=== PATIENT | male | born 1965 | race Caucasian/White ===

== ENCOUNTER 2018-12-01 16:38 | Emergency (ER) | payer OTHER ==
[~2018-12-01] VITALS: Ht 172.7 cm; Wt 78.9 kg
[~2018-12-01 16:38] MED LIST: AMOX250; Cleocin HCl300 MG PO; HYDR-86; PERIDEX15 ML MM
[2018-12-01 17:53] LABS: BASOPHILS ABSOLUTE AUTO 0.04 K/mm3 (0.00-0.23); BASOPHILS PERCENT AUTO 1 % (0-2); EOSINOPHILS ABSOLUTE AUTO 0.11 K/mm3 (0.00-0.68); EOSINOPHILS PERCENT AUTO 2 % (0-6); Hematocrit 45.1 % (37.0-53.0); Hemoglobin 15.4 g/dL (13.5-17.5); IMMATURE GRAN ABSOLUTE AUTO 0.01 K/mm3 (0.00-0.10); IMMATURE GRAN PERCENT AUTO 0 % (0-1); LYMPHOCYTES ABSOLUTE AUTO 2.16 K/mm3 (0.84-5.20); LYMPHOCYTES PERCENT AUTO 39 % (21-46); MONOCYTES ABSOLUTE AUTO 0.54 K/mm3 (0.16-1.47); MONOCYTES PERCENT AUTO 10 % (4-13); Mean Corpuscular HGB 32.7 pg (26.0-34.0); Mean Corpuscular HGB Conc 34.1 g/dL (31.5-36.5); Mean Corpuscular Volume 96 fL (80-100); Mean Platelet Volume 9.7 fL (9.1-12.4); NEUTROPHILS ABSOLUTE AUTO 2.69 K/mm3 (1.96-9.15); NEUTROPHILS PERCENT AUTO 49 % (41-73); Platelet Count 261 K/mm3 (150-400); RDW Coefficient Variation 13.9 % (11.7-14.2); RDW Standard Deviation 49.3 fL (35.1-46.3); Red Blood Cell Count 4.71 M/mm3 (4.30-5.90); White Blood Cell Count 5.55 K/mm3 (4.00-11.30)
[2018-12-01 18:17] LABS: Troponin I <0.015 ng/mL (0.000-0.040)
[2018-12-01 18:18] LABS: Alanine Aminotransfer (ALT/SGP 54 U/L (12-78); Albumin, Blood 4.5 g/dL (3.4-5.0); Albumin/Globulin Ratio 1.2 (0.8-1.8); Alk Phos 61 U/L (50-136); Anion Gap 8 mmol/L (6-16); Aspartate Aminotrans (AST/SGOT 65 U/L (12-37); Bilirubin, Total 0.4 mg/dL (0.1-1.0); Blood Urea Nitrogen 9 mg/dL (8-24); Bun/Creatinine Ratio 10.9 (12.0-20.0); CO2, Blood 28 mmol/L (21-32); Chloride, Blood 104 mmol/L (98-108); Creatinine, Blood 0.83 mg/dL (0.60-1.20); Globulin, Blood 3.8 g/dL (2.2-4.0); Glomerular Filtration Rate >60 (60-); Glucose, Blood 98 mg/dL (70-99); Potassium, Blood 3.9 mmol/L (3.5-5.5); Sodium, Blood 140 mmol/L (136-145); Total Protein, Blood 8.3 g/dL (6.4-8.2)
[2018-12-01 18:40] LABS: U Amphetamine Screen Not Detected; U Barbituate Screen Not Detected; U Benzodiazapine Screen Not Detected; U Cocaine Screen Not Detected; U Methadone Screen Not Detected; U Methamphetamine Screen Not Detected; U Opiates Screen Not Detected; U Phencyclidine Screen Not Detected
[2018-12-01 18:41] LABS: U Buprenorphine Screen Not Detected; U Cannabinoids Screen DETECTED; U Oxycodone Screen Not Detected; U Propoxyphene Screen Not Detected
[2018-12-01] MEDS ORDERED: Motion Sickness25 M1 PO (19:46)
== END 2018-12-01 19:52 | disposition home or self-care (01) ==
LOC: ER 16:38
PROVIDERS: Emergency Medicine; Physician Assistant
DX: R42 Dizziness and giddiness (principal); E53.8 Deficiency of other specified B group vitamins; R11.2 Nausea with vomiting, unspecified; Z79.899 Other long term (current) drug therapy; Z79.891 Long term (current) use of opiate analgesic; F17.200 Nicotine dependence, unspecified, uncomplicated
CPT/HCPCS: 36415; 70450; 71046; 80053; 82607; 82746; 84484; 85025; 93005; 93010; 96361; 96374; 99284-25; J2405; J7030

== ENCOUNTER 2020-07-22 15:50 | Inpatient (IN) | payer OTHER ==
[~2020-07-22] VITALS: Ht 172.7 cm; Wt 78.3 kg
[~2020-07-22 15:50] MED LIST changes: +Motion Sickness25 M1 PO
[2020-07-22 16:13] LABS: BASOPHILS ABSOLUTE AUTO 0.05 K/mm3 (0.00-0.23); BASOPHILS PERCENT AUTO 1 % (0-2); EOSINOPHILS ABSOLUTE AUTO 0.16 K/mm3 (0.00-0.68); EOSINOPHILS PERCENT AUTO 2 % (0-6); Hemoglobin 16.2 g/dL (13.5-17.5); IMMATURE GRAN ABSOLUTE AUTO 0.01 K/mm3 (0.00-0.10); IMMATURE GRAN PERCENT AUTO 0 % (0-1); LYMPHOCYTES ABSOLUTE AUTO 1.88 K/mm3 (0.84-5.20); LYMPHOCYTES PERCENT AUTO 28 % (21-46); MONOCYTES ABSOLUTE AUTO 0.62 K/mm3 (0.16-1.47); MONOCYTES PERCENT AUTO 9 % (4-13); Mean Corpuscular HGB Conc 33.8 g/dL (31.5-36.5); Mean Corpuscular Volume 101 fL (80-100); Mean Platelet Volume 9.8 fL (9.1-12.4); NEUTROPHILS PERCENT AUTO 59 % (41-73); Platelet Count 175 K/mm3 (150-400); RDW Coefficient Variation 12.8 % (11.7-14.2); Red Blood Cell Count 4.76 M/mm3 (4.30-5.90); White Blood Cell Count 6.62 K/mm3 (4.00-11.30)
[2020-07-22 16:20] LABS: Source, Urine Catheter
[2020-07-22 16:32] LABS: Appearance, Urine Hazy (Clear); Bilirubin, Urine Neg (Neg); Blood, Urine 2+ (Neg); Color, Urine Yellow (P-Yellow); Glucose Qualitative, Urine Neg (Neg); Ketones, Urine 1+ (Neg); Leukocyte Esterase, Urine 1+ (Neg); Nitrite, Urine Neg (Neg); Protein, Urine 3+ (Neg); Specific Gravity, Urine 1.015 (1.003-1.022); Urobilinogen, Urine 1+ (Normal); pH, Urine 6.5 (5.0-8.0)
[2020-07-22 16:43] LABS: Mucus Light (0-Heavy); White Blood Cells, Urine 0-2 /hpf (0-5)
[2020-07-22 16:44] LABS: Amorphous Light (0-Heavy); Bacteria Few /hpf; Squamous Epithelial Cells Few /hpf (Few); U Amphetamine Screen Not Detected; U Barbituate Screen Not Detected; U Benzodiazapine Screen DETECTED; U Buprenorphine Screen Not Detected; U Cannabinoids Screen DETECTED; U Cocaine Screen Not Detected; U Methadone Screen Not Detected; U Methamphetamine Screen Not Detected; U Opiates Screen Not Detected; U Phencyclidine Screen Not Detected
[2020-07-22 16:45] LABS: U Oxycodone Screen Not Detected; U Propoxyphene Screen Not Detected
[2020-07-22 16:47] LABS: Alanine Aminotransfer (ALT/SGP 200 U/L (12-78); Albumin, Blood 3.9 g/dL (3.4-5.0); Alk Phos 68 U/L (50-136); Anion Gap 12 mmol/L (6-16); Aspartate Aminotrans (AST/SGOT 208 U/L (12-37); Bilirubin, Total 0.4 mg/dL (0.1-1.0); Blood Urea Nitrogen 11 mg/dL (8-24); Bun/Creatinine Ratio 14.8 (12.0-20.0); CO2, Blood 26 mmol/L (21-32); Calcium, Blood 8.6 mg/dL (8.5-10.1); Chloride, Blood 104 mmol/L (98-108); Creatinine, Blood 0.74 mg/dL (0.60-1.20); Globulin, Blood 3.9 g/dL (2.2-4.0); Glomerular Filtration Rate >60 (60-); Glucose, Blood 125 mg/dL (70-99); Salicylate 3.7 mg/dL (2.8-20.0); Sodium, Blood 142 mmol/L (136-145); Total Protein, Blood 7.8 g/dL (6.4-8.2)
[2020-07-22 16:50] LABS: Ethanol (Alcohol), Blood, Med 483 mg/dL
[2020-07-22 16:51] LABS: Acetaminophen, Random <2.0 ug/mL (10.0-30.0)
[2020-07-22 17:08] LABS: PCO2 Arterial 57.6 mmHg (35-45); PO2 Arterial 82.9 mmHg (80-100)
[2020-07-22 17:38] LABS: Influenza A, PCR Negative (NEGATIVE); Influenza B, PCR Negative (NEGATIVE); Resp Syncytial Virus, PCR Negative (NEGATIVE); SARS-Cov-2 (COVID-19) PCR, MMC Negative (NEGATIVE)
--- NOTE | 2020-07-22 20:00 | NUR ---
ASSESSMENT/ADMIT PT ADMITTED TO ICU 13 VIA ER. PT ARRIVED VIA GURNEY WITH RN AND RT. PT INTUBATED AND BEING BAGGED. PT TRANSFERED TO BED BY STAFF WITH SLIDER SHEET. PT TRYING TO REACH FOR ET TUBE. NOT FOLLOWING INSTRUCTIONS. BILAT WRIST RESTRAINTS ON. PT CALMS WHEN UNDISTURBED, BUT PULLS AGAINST RESTRAINTS DURING ASSESSMENT AND TO VERBAL STIMULI. LUNGS WITH WHEEZES TO UPPER LOBES AND DECREAED THROUGHOUT. VENT SETTINGS AC 18 TV 450 PEEP 5 FIO2 35%. SUCTIONED SCANT AMT CLEAR LIQUID VIA ET TUBE. HEART RATE REGULAR. NO EDEMA. BT+ HYPOACTIVE. OG TO LIS WITH SMALL AMT CLEAR LIQUID IN TUBING. BARNES CATH PATENT DRAINING DARK YELLOW URINE. IV 20 G TO RIGHT AC WITH NS AT TKO, SITE CLEAR. IV 20G TO LEFT AC WITH PROPOFOL AT 50 MCQ/KG/MIN, FENTANYL 100 MCQ/HR. SITE CLEAR.
[2020-07-22 20:36] LABS: International Normalized Ratio 0.96; Prothrombin Time Results 10.3 Sec (9.7-11.5)
--- NOTE | 2020-07-22 22:10 | NUR ---
POISON CONTROL [facility] FROM [facility]ISON [facility] CALLED, UPDATE GIVE AND REVIEWED LABS.
--- NOTE | 2020-07-22 22:53 | NUR ---
HYPOTENSION CALL TO HOSPITALIST MARCI NICOLE REGARDING HYPOTESION AND SEDATION. ORDER FOR LEVOPHED OBTAINED
--- NOTE | 2020-07-23 02:30 | NUR ---
SEDATION PT TRYING TO KICK LEGS OUT OF BED AND SIT UP. PULLING AGAINST RESTRAINTS. MED WITH VERSED 2 MG. PT THAN STOPS PULLING AGAINST RESTRAINTS AND RELAXES. SPO2 THAN DROPS TO 82%. SUCTIONED SCANT AMT VIA ET TUBE. RT INCREASED FIO2 TO 50% TO KEEP FIO2 GREATER THAN 92%.
[2020-07-23 04:03] LABS: BASOPHILS ABSOLUTE AUTO 0.03 K/mm3 (0.00-0.23); BASOPHILS PERCENT AUTO 1 % (0-2); EOSINOPHILS ABSOLUTE AUTO 0.13 K/mm3 (0.00-0.68); EOSINOPHILS PERCENT AUTO 2 % (0-6); Hematocrit 38.9 % (37.0-53.0); Hemoglobin 12.8 g/dL (13.5-17.5); IMMATURE GRAN ABSOLUTE AUTO 0.02 K/mm3 (0.00-0.10); IMMATURE GRAN PERCENT AUTO 0 % (0-1); LYMPHOCYTES ABSOLUTE AUTO 1.48 K/mm3 (0.84-5.20); LYMPHOCYTES PERCENT AUTO 28 % (21-46); MONOCYTES ABSOLUTE AUTO 0.37 K/mm3 (0.16-1.47); MONOCYTES PERCENT AUTO 7 % (4-13); Mean Corpuscular HGB 33.8 pg (26.0-34.0); Mean Corpuscular HGB Conc 32.9 g/dL (31.5-36.5); Mean Corpuscular Volume 103 fL (80-100); Mean Platelet Volume 10.4 fL (9.1-12.4); NEUTROPHILS PERCENT AUTO 62 % (41-73); Platelet Count 147 K/mm3 (150-400); RDW Coefficient Variation 13.1 % (11.7-14.2); RDW Standard Deviation 49.7 fL (35.1-46.3); Red Blood Cell Count 3.79 M/mm3 (4.30-5.90); White Blood Cell Count 5.33 K/mm3 (4.00-11.30)
[2020-07-23 04:21] LABS: Alanine Aminotransfer (ALT/SGP 130 U/L (12-78); Albumin, Blood 2.9 g/dL (3.4-5.0); Alk Phos 50 U/L (50-136); Anion Gap 9 mmol/L (6-16); Aspartate Aminotrans (AST/SGOT 115 U/L (12-37); Bilirubin, Total 0.4 mg/dL (0.1-1.0); Blood Urea Nitrogen 10 mg/dL (8-24); Bun/Creatinine Ratio 12.5 (12.0-20.0); CO2, Blood 25 mmol/L (21-32); Chloride, Blood 112 mmol/L (98-108); Globulin, Blood 2.8 g/dL (2.2-4.0); Glomerular Filtration Rate >60 (60-); Glucose, Blood 107 mg/dL (70-99); Potassium, Blood 3.8 mmol/L (3.5-5.5); Sodium, Blood 146 mmol/L (136-145); Total Protein, Blood 5.7 g/dL (6.4-8.2)
--- NOTE | 2020-07-23 06:05 | NUR ---
SHIFT SUMMARY PT ADMITTED TO ICU 13 DURING THE NIGHT. PT INTUBATED AND ON [facility] VENT. CURRENT VENT SETTINGS AC 18 TV 450 PEEP 5 FIO2 40%. LUNGS CLEAR BUT DECREASED IN THE BASES. SUCTIONING SCANT AMT CLEAR LIQUID VIA ET TUBE. HEART RATE REGULAR. PT STARTED ON LEVOPHED DURING THE NIGHT DUE TO HYPOTENSION TITRATED TO KEEP MAP GREATER THAN 65. CURRENTLY LEVOPHED AT 4 MCQ/MIN. OG TO LIS WITH SCANT AMT IN TUBING. BARNES CATH PATENT DRAINING DARK YELLOW URINE. 383ML OUT FOR THE NIGHT OF URINE. DIFFICULTY SEDATING PT CURRENTLY PT ON PROPOFOL AT 50 MCQ/KG/MIN, FENTANYL 100 MCQ/HR, PRECEDEX 0.7 MCQ/KG/HR AND RECEIVING VERSED 2MG PRN. BILAT WRIST RESTRAINTS ON. DAUGHTER CAME INTO SEE PT FOR ABOUT 5 MIN DURING THE NIGHT SHE WILL BE BACK TODAY. STATED PT LOST HIS ONE WEEK AGO. REPORT TO ON COMING NURSE.
--- NOTE | 2020-07-23 08:15 | NUR ---
ASSESSMENT- PT SEDATED WITH PROPOFOL AT 50 MCG/KG/MIN, PRECEDEX AT 0.7 MCG/KG/HR AND FENTANYL GTT AT 100 MCG/HR. ABLE TO OPEN EYES TO NAME, NO RESPONSE TO COMMANDS. DOES MOVE EXTREMITIES. EXTUBATION RISK, BILATERAL WRIST RESTRAINTS ON. ORALLY INTUBATED, TUBE SECURE. TOLERATING VENT. LUNGS CLEAR, SCANT CLEAR SECRETIONS. NSR, SBP STABLE, LEVOPHED TITRATED OFF. PIV X 2 INTACT, 3RD SITE STARTED. NS AT 100 CC/HR. OGT TO LIS WITH SCANT CLEAR DRAINAGE. UO VIA BARNES. DR. COLLADO HERE-UPDATED.
--- NOTE | 2020-07-23 09:37 | NUR ---
DR HA HERE-ASSESSED PT. DECREASED FENTANYL TO 50 MCG/HR, WILL ATTEMPT TO WEAN OFF. PT AWAKENS TO NAME, NO RESPONSE TO COMMANDS
--- NOTE | 2020-07-23 11:29 | NUR ---
BATH DONE, REPOSITIONED, AWAKENS EASILY, BACK TO SLEEP QUICKLY. FENTANYL TITRATED OFF. POISON CONTROL CALLED-UPDATED. UO LOW, NEEDED TO RESTART LEVOPHED, CHECKING IV SITE FREQUENTLY. LR BOLUS STARTED
--- NOTE | 2020-07-23 13:30 | NUR ---
DR. HA HERE-ATTEMPT TO DECREASE PROPOFOL, PLAN TO INCREASE PRECEDEX AND TITRATE OFF PROPOFOL IF TOLERATED. PROPOFOL CHANGED TO 40 MCG/KG/MIN, PT QUICKLY BECAME VERY AGITATED, TRYING TO SIT UP IN BED, KICKING LEGS. NEEDED TO RX WITH VERSED, INCREASE PROPOFOL TO 80 MCG/KG/MIN FOR SEDATION. MULTIPLE STAFF NEEDED TO PREVENT SELF-EXTUBATION. NOW CALM, SEDATE. SECOND LR BOLUS INFUSING-UO LOW.
--- NOTE | 2020-07-23 14:10 | NUR ---
PHENOBARB GIVEN, PROPOFOL DECREASED TO 50 MCG/KG/MIN. PT SEDATE, ABLE TO TOLERATE TURNING. NSR. BP STABLE. BOLUS STILL INFUSING, UO MINIMAL
[2020-07-23 15:27] LABS: Anion Gap 4 mmol/L (6-16); Blood Urea Nitrogen 13 mg/dL (8-24); Bun/Creatinine Ratio 16.9 (12.0-20.0); CO2, Blood 27 mmol/L (21-32); CPK Creatine Kinase 95 U/L (39-308); Calcium, Blood 7.2 mg/dL (8.5-10.1); Chloride, Blood 112 mmol/L (98-108); Creatinine, Blood 0.77 mg/dL (0.60-1.20); Glomerular Filtration Rate >60 (60-); Glucose, Blood 117 mg/dL (70-99); Sodium, Blood 143 mmol/L (136-145)
--- NOTE | 2020-07-23 16:30 | NUR ---
SEE ASSESSMENTS-PT SEDATE, QUIET, VSS. TITRATING PROPOFOL DOWN. PT'S DAUGHTER NA HERE-UPDATED. TALKED WITH RIVERA ROONEY.
--- NOTE | 2020-07-23 18:00 | NUR ---
HAS REMAINED SEDATED, QUIET, TOLERATING VENT, VSS. PROPOFOL AT 35 MCG/KG/MIN, PRECEDEX AT 1.4 MCG/KG/HR, BANANA BAG INFUSING. PIV X 3 INTACT. DOES OPEN EYES TO NAME, ABLE TO CALM WITH REASSURANCE AND BACK TO SLEEP QUICKLY. FEBRILE, TEMP 100. SCDS ON. UO 225 FOR SHIFT. TUBE FEDS AT 15 C/HR. ABDOMEN SOFT BUT FEW BOWEL SOUNDS. DR. HA HERE-UPDATED. SEE ORDERS FOR SEDATION. CONTINUE TO MONITOR
--- NOTE | 2020-07-23 18:22 | NUR ---
Spiritual care note: I met with Mark's dtr, Juliann, at bedside. She did not stay long as pt is on vent and sedated. She does not live locally. Juliann plans to stay with pt when he is discahrged "making sure that he gets the help he needs." I provided encouragement and affirmation of love. It was a brief visit. I will remain available to pt and family in coming days.
--- NOTE | 2020-07-23 19:20 | NUR ---
ASSESSMENT/ASSUMED CARE BEDSIDE REPORT RECEIVED FROM FORD EUGENE. PT CONT INTUBATED AND ON [facility] VENT. LUNGS CLEAR BUT DECREASED IN THE BASES. VENT SETTINGS AC 18 TV 450 PEEP 5 FIO2 30%. SUCTIONED SCANT AMT CLEAR LIQUID VIA ET TUBE. PT WAKES UP TO VERBAL STIMULI AND PULLS ON RESTRAINTS, TRIED TO SIT UP AND REACHES FOR ET TUBE. PT MED WITH ATIVAN. PROPOFOL AT 35 MCQ/KG/MIN AND PRECEDEX AT 1.4 MCQ/KG/HR FOR SEDATION. BILAT SOFT WRIST RESTRAINT ON. PT CALMS AFTER ATIVAN AND WHEN UNDISTURBED. HEART RATE REGULAR, SAHIL IN THE 50'S. BP STABLE. NO EDEMA. BT+ HYPOACTIVE. RESIDUAL 130 ML REFED. PIVOT AT 15 ML/HR WITH H20 30 ML Q4HR VIA OG TUBE. BARNES CATH PATENT DRAINING CANDIDO URINE. IV RIGHT WRIST SALINE LOCKED, SITE CLEAR, FLUSHED WITHOUT DIFFICULTY. IV LEFT AC WITH PROPOFOL AND PRECEDEX, SITE CLEAR, IV LEFT WRIST WITH BANANA BAG AT 200 ML/HR SITE CLEAR. PT MOVING SELF IN BED. SCD'S ON.
[2020-07-24 03:54] LABS: BASOPHILS PERCENT AUTO 0 % (0-2); EOSINOPHILS ABSOLUTE AUTO 0.08 K/mm3 (0.00-0.68); EOSINOPHILS PERCENT AUTO 3 % (0-6); Hematocrit 39.1 % (37.0-53.0); Hemoglobin 12.8 g/dL (13.5-17.5); IMMATURE GRAN ABSOLUTE AUTO 0.01 K/mm3 (0.00-0.10); IMMATURE GRAN PERCENT AUTO 0 % (0-1); LYMPHOCYTES PERCENT AUTO 19 % (21-46); MONOCYTES ABSOLUTE AUTO 0.23 K/mm3 (0.16-1.47); MONOCYTES PERCENT AUTO 7 % (4-13); Mean Corpuscular HGB 33.5 pg (26.0-34.0); Mean Corpuscular HGB Conc 32.7 g/dL (31.5-36.5); Mean Corpuscular Volume 102 fL (80-100); Mean Platelet Volume 10.6 fL (9.1-12.4); NEUTROPHILS ABSOLUTE AUTO 2.29 K/mm3 (1.96-9.15); NEUTROPHILS PERCENT AUTO 71 % (41-73); Platelet Count 139 K/mm3 (150-400); RDW Coefficient Variation 12.8 % (11.7-14.2); RDW Standard Deviation 48.7 fL (35.1-46.3); Red Blood Cell Count 3.82 M/mm3 (4.30-5.90); White Blood Cell Count 3.21 K/mm3 (4.00-11.30)
--- NOTE | 2020-07-24 04:05 | NUR ---
SEDATION AFTER REPOSITIONING PT TRYING TO SIT UP IN BED AND FIGHTING VENT. MED WITH ATIVAN 2 MG.
[2020-07-24 04:13] LABS: Anion Gap 7 mmol/L (6-16); Blood Urea Nitrogen 15 mg/dL (8-24); Bun/Creatinine Ratio 18.8 (12.0-20.0); CO2, Blood 25 mmol/L (21-32); Calcium, Blood 7.2 mg/dL (8.5-10.1); Chloride, Blood 109 mmol/L (98-108); Glomerular Filtration Rate >60 (60-); Glucose, Blood 127 mg/dL (70-99); Magnesium, Blood 1.9 mg/dL (1.6-2.4); Phosphorus, Blood 2.7 mg/dL (2.5-4.9); Potassium, Blood 3.6 mmol/L (3.5-5.5); Sodium, Blood 141 mmol/L (136-145)
--- NOTE | 2020-07-24 05:50 | NUR ---
SHIFT SUMMARY PT CONT INTUBATED AND ON [facility] VENT. VENT SETTINGS AC 18 TV 450 PEEP 5 FIO2 30%. PT SEDATED WITH PROPOFOL AND PRECEDEX. SEDATION VACATION DONE AT 0400. WHEN DECREASED PROPOFOL TO 15 MCQ/KG/MIN PT WOKE UP AND TRIED TO REACH FOR ET TUBE. NOT FOLLOWING INSTRUCTIONS. PROPOFOL INCREASED BACK UP TO 35 MCQ/KG/MIN AND PT MED WITH ATIVAN. LUNGS CONT TO BE CLEAR BUT DECREASED IN THE BASES. HEART RATE REGULAR. BP STABLE OFF LEVOPHED ALL NIGHT. TUBE FEED INCREASED FROM 15 ML/HR TO 25 ML/HR. POOR URINE OUTPUT 296 ML DURING THE NIGHT, TEA COLORED URINE. BILAT WRIST RESTRAINTS ON. REPORT TO ON COMING NURSE
--- NOTE | 2020-07-24 07:45 | NUR ---
ASSUMED CARE BEDSIDE REPORT RECIEVED. PT IS INTUBATED AND SEDATED. VENT SETTINGS AC 18, TV 450, PEEP 5, FIO2 30%. PT SEDATED WITH PROPOFOL AT 35 MCG/KG/MIN AND PRECEDEX AT 1.4 MCG/KG/MIN. OGT IN PLACE WITH TF AT 25 ML/HR. BARNES IN PLACE WITH DARK YELLOW URINE OUTPUT. SBW RESTRAINTS IN PLACE. PT WITH COUGH AND GAG PRESENT WITH SUCTION. PT GRIMMACES TO NOXIOUS STIMULI. VITAL SIGNS STABLE. WILL CONTINUE TO MONITOR.
--- NOTE | 2020-07-24 12:17 | NUR ---
AGITATION ATTEMPTED TO SLOWLY DECREASE PROPOFOL AND MED WITH ATIVAN PRN PER REQUEST OF DR HA TO ASSESS FOR ABILITY TO EXTUBATE. PT WITH SEVERE AGITATION, REQUIRING 4 RN'S TO PREVENT ETT REMOVAL. PT THRASHING HEAD AND KICKING LEGS. DR HA AT BEDSIDE TO EVALUATE. PT NOT FOLLOWING ANY DIRECTIONS. PT MED WITH 8MG ATIVAN IV AND PHENOBARBITOL IV. PROPOFOL INCREASED BACK TO 30 MCG/KG/MIN. PRECEDEX REMAINS AT 1.4 MCG/KG/MIN. WILL HOLD OFF ON EXTUBATION TODAY. WILL CONTINUE TO MONITOR.
--- NOTE | 2020-07-24 17:29 | NUR ---
SHIFT SUMMARY NO ACUTE CHANGES AT THIS TIME. PT REMAINS INTUBATED AND SEDATED. PT IS RESTING QUIETLY AT THIS TIME WITH PROPOFOL INFUSING AT 30 MCG/KG/MIN AND PRECEDEX AT 1.4 MCG/KG/MIN. VENT SETTINGS REMAIN AC 18, TV 450, PEEP 5, FIO2 30%. PT WITH PERIOD OF AGITATION EARLIER THIS SHIFT WITH LESS SEDATION. SEE PREVIOUS NOTES FOR MORE INFO. VITAL SIGNS STABLE. OGT IN PLACE WITH TF AT 35 ML/HR GOAL RATE, MINIMAL RESIDUALS NOTED. BARNES REMAINS IN PLACE WITH DARK YELLOW OUTPUT NOTED BANANA BAG INFUSING AT 200 ML/HR. NO FAMILY VISITS TODAY. WILL CONTINUE TO MONITOR AND REPORT OFF TO ONCOMING RN.
--- NOTE | 2020-07-24 19:37 | NUR ---
ASSUMED CARE RECEIVED REPORT FROM JABIER SAHA. PT IS SEDATED ON VENT, SETTINGS ARE AC 18/450/5/30%, INTUBATED WITH 8.0 ETT, 24 AT THE TEETH. GTTPs ARE PROPOFOL AT 30 MCG/KG/MIN, PRECEDEX AT 1.4 MCG/KG/HR, AND A BANANA BAG INFUSING AT 200 ML/HR. CURRENT EUGENE OF 3. HE IS IN SINUS BRADYCARDIA, RATE IN 50s, HYPERTENSIVE WITH A BP OF 166/87, 104, SPO2 OF 96%, RR AT 18 (RIDING THE VENT) AND IS A AFEBRILE 98.5F. PT RECEIVING TUBE FEEDS, PIVOT 1.5 INFUSING VIA OG TUBE AT 35 ML/HR, WITH Q4H 30ML WATER FLUSHES. PATENT BARNES DRAINING YELLOW URINE. SCDs ON, SWB SECURED TO PT AND BED. BED LOW AND LOCKED.
--- NOTE | 2020-07-24 21:45 | NUR ---
UPDATE NO MAJOR CHANGES, PT WOKE UP ONCE AND STARTED TO THRASH AROUND. HE WAS SHAKING HIS HEAD YES AND NO TO DIFFERENT QUESTIONS. NOT NECCESSARILY FOLLOWING COMMANDS, THOUGH. HE THEN STARTED TO VIOLENTLY SHAKE HIS HEAD BACK AND FORTH AND PULLING ON HIS RESTRAINTS. ATIVAN WAS GIVEN. AND WITHIN A FEW MINUTES PT BECAME CALM AND SEDATED. WILL CONTINUE TO MONITOR.
--- NOTE | 2020-07-25 00:10 | NUR ---
UPDATE PT WOKE UP AGAIN, COUGHING, HIGH PEAK PRESSURES, THEN STARTED TO THRASH AROUND, VIOLENTLY SHAKING HIS HEAD BACK AND FORTH. ONE NURSE AND BARKEEPER ATTEMPTED TO HOLD PT DOWN TO PREVENT SELF EXTUBATION, WHILE ONE OTHER NURSE GOT PHENOBARBITAL. AFTER THE MED WAS GIVEN, THE PT WAS SUCTIONED, SMALL AMOUNTS OF THIN WHITE WAS SUCTIONED UP. MODERATE AMOUNTS OF ORAL SECRETIONS DRIPPING OUT OF MOUTH, WAS ALSO SUCTIONED WITH YANKAUR. PT HAD OPENED HIS EYES SLIGHTLY DURING THIS, AND WOULD LOOK TOWARDS THE VERBAL STIMULI, BUT NOT TRACK ON ANYONE/ANYTHING IN PARTICULAR. CONTINUES TO NOT FOLLOW COMMANDS, WAS NOT SHAKING HIS HEAD YES/NO TO QUESTIONS.
--- NOTE | 2020-07-25 03:34 | NUR ---
UPDATE NO MAJOR CHANGES, ASIDE FROM BRIEF PERIODS OF BREAK-THROUGH AGITATION, PT IS AT A EUGENE OF 2-3. MODERATE AMOUNT OF SECRETIONS SUCTIONED FROM TRACHEA, THIN/WHITE, MORE THAN EARLIER. VITALS REMAIN STABLE. WILL CONTINUE TO MONITOR.
[2020-07-25 03:51] LABS: BASOPHILS ABSOLUTE AUTO 0.01 K/mm3 (0.00-0.23); BASOPHILS PERCENT AUTO 0 % (0-2); EOSINOPHILS ABSOLUTE AUTO 0.13 K/mm3 (0.00-0.68); EOSINOPHILS PERCENT AUTO 3 % (0-6); Hematocrit 39.6 % (37.0-53.0); IMMATURE GRAN ABSOLUTE AUTO 0.01 K/mm3 (0.00-0.10); IMMATURE GRAN PERCENT AUTO 0 % (0-1); LYMPHOCYTES ABSOLUTE AUTO 0.45 K/mm3 (0.84-5.20); LYMPHOCYTES PERCENT AUTO 11 % (21-46); MONOCYTES ABSOLUTE AUTO 0.28 K/mm3 (0.16-1.47); MONOCYTES PERCENT AUTO 7 % (4-13); Mean Corpuscular HGB 33.8 pg (26.0-34.0); Mean Corpuscular HGB Conc 32.8 g/dL (31.5-36.5); Mean Corpuscular Volume 103 fL (80-100); Mean Platelet Volume 10.9 fL (9.1-12.4); NEUTROPHILS ABSOLUTE AUTO 3.07 K/mm3 (1.96-9.15); NEUTROPHILS PERCENT AUTO 78 % (41-73); Platelet Count 126 K/mm3 (150-400); RDW Coefficient Variation 12.7 % (11.7-14.2); RDW Standard Deviation 47.8 fL (35.1-46.3); Red Blood Cell Count 3.85 M/mm3 (4.30-5.90); White Blood Cell Count 3.95 K/mm3 (4.00-11.30)
[2020-07-25 04:10] LABS: Anion Gap 7 mmol/L (6-16); Blood Urea Nitrogen 11 mg/dL (8-24); Bun/Creatinine Ratio 17.4 (12.0-20.0); CO2, Blood 25 mmol/L (21-32); Calcium, Blood 7.3 mg/dL (8.5-10.1); Chloride, Blood 110 mmol/L (98-108); Creatinine, Blood 0.63 mg/dL (0.60-1.20); Glomerular Filtration Rate >60 (60-); Glucose, Blood 139 mg/dL (70-99); Magnesium, Blood 2.1 mg/dL (1.6-2.4); Phosphorus, Blood 2.3 mg/dL (2.5-4.9); Potassium, Blood 3.3 mmol/L (3.5-5.5); Sodium, Blood 142 mmol/L (136-145)
--- NOTE | 2020-07-25 05:32 | NUR ---
END OF SHIFT UPDATE NO MAJOR CHANGES. VENT SETTINGS REMAIN UNCHANGED, PRECEDEX AT 1.4 MCG/KG/HR, AND PROPOFOL AT 30 MCG/KG/MIN. EUGENE HAS BEEN 2-3 FAIRLY CONSISTENTLY WITH BRIEF PERIODS OF AGITATION INVOLVING THRASHING AROUND IN BED, VIOLENTLY SHAKING HEAD LEFT AND RIGHT, AND PULLING ON RESTRAINTS. OFTEN, NEEDING ATIVAN AND/OR PHENOBARBITOL - DR. HA IS WANTING US TO KEEP PROPOFOL BELOW 35 MCG/KG/HR, UNLESS ABSOLUTLEY NECESSARY. DURING THESE PERIODS OF TIME, PT IS NOT FOLLOWING COMMANDS, BUT IS TRANSIENTLY SHAKING HEAD YES, AND NO TO SIMPLE QUESTIONS. BUT IS INCONSISTENT SOMETIMES AN INAPPROPRIATE RESPONSE, SO IT IS UNCLEAR IF PT IS ORIENTED TO SELF, SURROUNDINGS, SITUATION, OR TIME. TF REMAINS UNCHANGED, PIVOT 1.5 INFUSING AT GOAL RATE OF 35 ML/HR RESIDUALS HAVE INCREASED T/O NIGHT, @ 0430 RESIDUALS HAD INCREASED TO 240ML, (FORMULA MIXED WITH BILE) AND PER ORDERS THEY WERE REINSTILLED. BARNES REMAINS PATENT, DRAINING YELLOW URINE. SCDs IN PLACE, AND SWB RESTRAINTS SECURED TO PT AND BED. BED LOW AND LOCKED.
--- NOTE | 2020-07-25 08:20 | NUR ---
ASSUMED CARE BEDSIDE REPORT RECIEVED. PT IS INTUBATED AND SEDATED. VENT SETTINGS AC 18, TV 450, PEEP 5, FIO2 30%. PT WITH COPIOUS ORAL AND ETT SECRETIONS. PT SEDATED WITH PROPOFOL AT 30 MCG/KG/MIN AND PRECEDEX AT 1.4 MCG/KG/MIN. PT MED WITH ATIVAN AND PHENOBARBITOL PRN. PT WITH PERIODS OF AGITATION AND THRASHING AROUND IN BED. SBW RESTRAINTS IN PLACE. VITAL SIGNS STABLE. OGT IN PLACE WITH TF AT GOAL RATE, MINIMAL RESIDUALS NOTED. BARNES IN PLACE WITH DARK YELLOW OUTPUT NOTED. WILL CONTINUE TO MONITOR.
--- NOTE | 2020-07-25 09:46 | NUR ---
SBT DR HA AT BEDSIDE. PT PLACED ON PRESSURE SUPPORT 5/5, FIO2 30%. SEDATION REMAINS UNCHANGED. PLAN TO EXTUBATED TODAY IF PT DOES WELL WITH PRESSURE SUPPORT TRIAL. PT REMAINS RESTLESS AT TIMES.
--- NOTE | 2020-07-25 17:36 | NUR ---
SHIFT SUMMARY NO ACUTE CHANGES THIS SHIFT. PT REMAINS INTUBATED AND SEDATED. PT REMAINS ON PRESSURE SUPPORT OF 5/5 FIO2 30%. PT CONTINUES TO HAVE COPIOUS ORAL AND ETT SECRETIONS. PT REMAINS SEDATED WITH PROPOFOL AT 30 MCG/KG/MIN AND PRECEDEX AT 1.4 MCG/KG/MIN. PT MED WITH ATIVAN PRN. PT CONTINUES TO HAVE PERIODS OF AGITATION AND RESTLESNESS. OGT REMAINS IN PLACE WITH TF AT 35 ML/HR GOAL RATE. BARNES TEMP PROBE IN PLACE WITH OVER 4000 OF CLEAR YELLOW URINE OUTPUT NOTED. VITAL SIGNS STABLE. SBW RESTRAINTS REMAIN IN PLACE. WILL CONTINUE TO MONITOR AND REPORT OFF TO ONCOMING RN.
--- NOTE | 2020-07-25 19:00 | NUR ---
ASSUMED CARE ASSUMED CARE OF PATIENT. REMAINS INTUBATED- SPONTANEOUS VENTILATION PS 5, PEEP 5, FIO2 30%. TVs 300s. RR 20s. SEDATED WITH PROPOFOL AT 30MCG/KG/MIN AND PRECEDEX AT 1.4MCG/KG/HR. BILATERAL SOFT WRIST RESTRAINTS IN PLACE. RESTING QUIETLY WHEN UNDISTURBED, BUT BECOMES AGITATED WITH ANY STIMULATION. NOT FOLLOWING ANY COMMANDS. MOVES ALL EXTREMITES AND PULLS AGAINST RESTRAINTS. MONITOR SHOWS NSR, RATE 60s. BP STABLE. OG WITH PIVOT 1.5 AT GOAL RATE OF 35CC/HR. 30CC HQ2 FLUSH Q4H. BARNES PATENT AND DRAINING. KPHOS IVBP INFUSING PER ORDER. SEE SHIFT ASSESSMENT FOR FULL ASSESSMENT.
[2020-07-26 03:45] LABS: BASOPHILS ABSOLUTE AUTO 0.01 K/mm3 (0.00-0.23); BASOPHILS PERCENT AUTO 0 % (0-2); EOSINOPHILS ABSOLUTE AUTO 0.15 K/mm3 (0.00-0.68); EOSINOPHILS PERCENT AUTO 3 % (0-6); Hematocrit 40.4 % (37.0-53.0); Hemoglobin 13.6 g/dL (13.5-17.5); IMMATURE GRAN ABSOLUTE AUTO 0.02 K/mm3 (0.00-0.10); IMMATURE GRAN PERCENT AUTO 0 % (0-1); LYMPHOCYTES PERCENT AUTO 15 % (21-46); MONOCYTES ABSOLUTE AUTO 0.56 K/mm3 (0.16-1.47); MONOCYTES PERCENT AUTO 12 % (4-13); Mean Corpuscular HGB Conc 33.7 g/dL (31.5-36.5); Mean Corpuscular Volume 101 fL (80-100); Mean Platelet Volume 10.8 fL (9.1-12.4); NEUTROPHILS ABSOLUTE AUTO 3.31 K/mm3 (1.96-9.15); NEUTROPHILS PERCENT AUTO 70 % (41-73); Platelet Count 129 K/mm3 (150-400); RDW Coefficient Variation 12.7 % (11.7-14.2); RDW Standard Deviation 47.6 fL (35.1-46.3); White Blood Cell Count 4.75 K/mm3 (4.00-11.30)
[2020-07-26 04:00] LABS: Alanine Aminotransfer (ALT/SGP 82 U/L (12-78); Albumin, Blood 2.4 g/dL (3.4-5.0); Albumin/Globulin Ratio 0.6 (0.8-1.8); Alk Phos 61 U/L (50-136); Anion Gap 7 mmol/L (6-16); Aspartate Aminotrans (AST/SGOT 66 U/L (12-37); Bilirubin, Total 0.7 mg/dL (0.1-1.0); Blood Urea Nitrogen 10 mg/dL (8-24); Bun/Creatinine Ratio 14.4 (12.0-20.0); CO2, Blood 27 mmol/L (21-32); Calcium, Blood 7.7 mg/dL (8.5-10.1); Chloride, Blood 108 mmol/L (98-108); Creatinine, Blood 0.69 mg/dL (0.60-1.20); Globulin, Blood 3.8 g/dL (2.2-4.0); Glomerular Filtration Rate >60 (60-); Glucose, Blood 119 mg/dL (70-99); Potassium, Blood 3.6 mmol/L (3.5-5.5); Sodium, Blood 142 mmol/L (136-145); Total Protein, Blood 6.2 g/dL (6.4-8.2)
--- NOTE | 2020-07-26 06:34 | NUR ---
SHIFT SUMMARY NO ACUTE CHANGES. REMAINS INTUBATED- SPONTANEOUS VENTILATION WITH PS 5, PEEP 5, FIO2 30%. COPIOUS ORAL SECRETIONS NOTED. SEDATED WITH PROPOFOL AT 30MCG/KG/MIN AND PRECEDEX AT 1.4MCG/KG/HR. AGITATED AND RESTLESS WITH STIMULATION. MEDICATED WITH ATIVAN 4MG IV X 2 DOSES DURING SHIFT. MOVES ALL EXTREMITIES BUT NOT FOLLOWING COMMANDS. BILATERAL SOFT WRIST RESTRAINTS REMAIN IN PLACE. OG WITH TUBE FEEDING AT GOAL RATE OF 35CC/HR. INCONTINENT OF SMALL AMOUNT OF LOOSE STOOL. BARNES PATENT AND DRAINING TO GRAVITY. VSS T/O SHIFT. WILL REPORT TO ONCOMING RN WHEN AVAILABLE.
--- NOTE | 2020-07-26 08:17 | NUR ---
AM NOTE... ASSUMED CARE OF PT APROX 0700, PT IS INTUBATED AND SEDATED. PT'S ET TUBE WAS CHARTED TO BE 23 AT THE TEETH UPON ASSESSMENT IT WAS NOTED TO BE 25 A THE TEETH, RT WAS NOTIFIED AND THEY ASSESSED THAT IT WAS AT 25, RT PULLED THE ET TUBE OUT TO 23 TO THE TEETH. PT'S VENT SETTINGS ARE SPON. PC 5/5/30% W/O2 SATS >92%. PT HAS COPIOUS AMOUNTS OF ORAL SECRETIONS AND BECOMES AGITATED WITH ET AND ORAL SUCTIONING.L/S COARSE T/O DIM IN THE BASES. PT IS IN NSR IN THE 60'S-70'S, BP STABLE, TRACE EDEMA NOTED TO HIS BLE AND DEPENDENT EDEMA TO HIS HANDS. BT PRESENT AND HYPOACTIVE, ABD IS FIRM TO PALP. BARNES PATENT AND DRAINING DARK YELLOW URINE TO GRAVITY. TUBE FEED RUNNING PER ORDERS AND AT GOAL OF 35MLS/HR. WILL CONTINUE TO MONITOR.
--- NOTE | 2020-07-26 11:54 | NUR ---
PT UPDATE.... AT 1026 AT THE BEDSIDE TO ASSESS THE PT FOR POSSIBLE EXTUBATION. PER THE PROPOFOL WAS PLACED ON STANDBY BUT THE PRECEDEX CONTINUED TO RUN. PT STARTED TO WAKE AT APROX 1035 BUT WAS NOT RESPONDING TO COMMANDS, PT BECAME VERY AGITATED AND STARTED TO THRASH HIS HEAD AND BODY IN THE BED, AFTER ABOUT 10 MINS OF THIS AGITATION AND THE PT NOT RESPONDING TO COMMANDS THE PROPOFOL WAS RESTARTED. THE PT HAD TO BE TITRATED UP TO 60MCG AND THE PRECEDEX CONTINUED ON 1.4MCG/KG/HR. PT WILL BE REASSESSED FOR POSSIBLE EXTUBATION TOMORROW. WILL CONTINUE TO MONITOR.
--- NOTE | 2020-07-26 17:27 | NUR ---
SHIFT SUMMARY... PT FAILED HIS SEDATION WEAN TODAY D/T SEVERE AGITATION AND NOT BEING ABLE TO FOLLOW COMMANDS. PT CONTINUES TO BE INTUBATED AND SEDATED ON SPONTANIOUS AND PRESSURE SUPPORT OF 5/5/30%. PT'S VS HAVE BEEN STABLE T/O SHIFT. DURING THE PT'S SEVERE AGIATATION THE PROPOFOL WAS INCREASED TO 80MCG, PRECEDEX WAS CONTINUED AT 1.4 MCG AND PT WAS GIVEN 4MG IV ATIVAN, ONCE THE PT HAD CALMED DOWN THE PROPOFOL WAS TITRATED BACK DOWN TO 30MCG. PT HAD A LARGE LIQUID BROWN STOOL DURING THE SEDATION VACATION, IT WAS NOTED AT THAT TIME THERE WAS BROWN DRY CRUSTY DISCHARGE ON THE PT'S BARNES AND THE OPENING OF THE URETHRA, THIS WAS CLEANED APROX 3 HRS PRIOR BY THIS RN. AT APROX 1700 THE SALES AGENT TRADING STAMPS CAME TO THIS RN AND HAD SAID SHE NOTED BROWN DRY DISCHARGE ON THE OPENING OF THE URETHRA AND BARNES TUBING AND THAT IT HAD BEEN CLEANED AGAIN. THIS RN ASSESSED THE AREA APROX 30MINS LATER AND NOTED A THICK WHITEISH/TANISH DISCHARGE COMING OUT OF THE URETHRA AND AROUND THE BARNES TUBING. BARNES IS PATENT AND DRAINED 650MLS OF CLEAR DARK YELLOW/BROWN URINE. TUBE FEEDING IS RUNNING AT GOAL OF 35MLS/HR, NEW BOTTLE AND TUBING WERE STARTED. PT'S DAUGHTER CALLED FOR AN UPDATE AND TOLD THIS RN THAT THE PT IS A "DAILY DRINKER" OF BEER, THE DAUGHTER DID NOT KNOW EXACTLY HOW MUCH HE WOULD DRINK DAILY. WILL CONTINUE TO MONITOR UNTIL REPORT IS GIVEN TO ONCOMING RN.
--- NOTE | 2020-07-26 18:25 | NUR ---
PT UPDATE... PT'S TEMP WAS RECHECKED AGAIN AND IT WAS AT 100.1, L/S WERE REASSESSED AND NOTED TO HAVE INCREASED COARSENESS WITH SCATTERED RHONCHI WHICH IS A CHANGE FROM EARLIER ASSESSMENTS. WILL CONTINUE TO MONITOR.
--- NOTE | 2020-07-26 21:41 | NUR ---
[facility] [address] Bedside report recieved from JABIER Marlow. Pt intubated and sedated. Vent settings of PS 10, PEEP 5, FIO2 30%. Sedated with propofol at 35 mcg/kg/min and Precedex at 1.4 mcg/kg/hr. SWB in place. Not following directions but grimacing noted during oral care. NSR. HR 60's and BP stable. OG with Pivot 1.5 at goal of 35 cc/hr with 30 CC H2O Flush Q4H. Mcpherson patent and draining to gravity. Will continue to monitor.
--- NOTE | 2020-07-27 00:34 | NUR ---
Update Vent settings remain unchanged. Propofol 35 mcg/kg/min and Precedex 1.4 mcg/kg/hr. Pt with increased agitation, pulling at restraints and attempting to sit up in bed. Attempted to reorient with little effect. Eyes continue to be closed and pt unable to follow commands. Scheduled Ativan given with good effect.
[2020-07-27 03:24] LABS: BASOPHILS ABSOLUTE AUTO 0.02 K/mm3 (0.00-0.23); BASOPHILS PERCENT AUTO 0 % (0-2); EOSINOPHILS ABSOLUTE AUTO 0.15 K/mm3 (0.00-0.68); EOSINOPHILS PERCENT AUTO 3 % (0-6); Hematocrit 40.6 % (37.0-53.0); Hemoglobin 13.3 g/dL (13.5-17.5); IMMATURE GRAN ABSOLUTE AUTO 0.02 K/mm3 (0.00-0.10); IMMATURE GRAN PERCENT AUTO 0 % (0-1); LYMPHOCYTES ABSOLUTE AUTO 0.64 K/mm3 (0.84-5.20); LYMPHOCYTES PERCENT AUTO 13 % (21-46); MONOCYTES ABSOLUTE AUTO 0.67 K/mm3 (0.16-1.47); MONOCYTES PERCENT AUTO 14 % (4-13); Mean Corpuscular HGB 33.4 pg (26.0-34.0); Mean Corpuscular HGB Conc 32.8 g/dL (31.5-36.5); Mean Corpuscular Volume 102 fL (80-100); Mean Platelet Volume 10.5 fL (9.1-12.4); NEUTROPHILS ABSOLUTE AUTO 3.41 K/mm3 (1.96-9.15); NEUTROPHILS PERCENT AUTO 70 % (41-73); Platelet Count 147 K/mm3 (150-400); RDW Coefficient Variation 12.8 % (11.7-14.2); RDW Standard Deviation 49.1 fL (35.1-46.3); Red Blood Cell Count 3.98 M/mm3 (4.30-5.90); White Blood Cell Count 4.91 K/mm3 (4.00-11.30)
[2020-07-27 03:40] LABS: Anion Gap 7 mmol/L (6-16); Blood Urea Nitrogen 16 mg/dL (8-24); Bun/Creatinine Ratio 23.3 (12.0-20.0); CO2, Blood 24 mmol/L (21-32); Calcium, Blood 8.1 mg/dL (8.5-10.1); Chloride, Blood 111 mmol/L (98-108); Creatinine, Blood 0.69 mg/dL (0.60-1.20); Glomerular Filtration Rate >60 (60-); Glucose, Blood 117 mg/dL (70-99); Magnesium, Blood 1.9 mg/dL (1.6-2.4); Phosphorus, Blood 3.5 mg/dL (2.5-4.9); Potassium, Blood 3.8 mmol/L (3.5-5.5); Sodium, Blood 142 mmol/L (136-145)
[2020-07-27 05:02] LABS: PCO2 Arterial 33.7 mmHg (35-45); pH Blood Arterial 7.46 (7.35-7.45)
--- NOTE | 2020-07-27 05:27 | NUR ---
Sedation Vacation Propofol decreased to SB and Precedex decreased to 0.7 mcg/kg/hr. Pt unable to follow commands, opens eyes but unable to track. Pt thrashing head back and forth in bed, pulling at restraints, attempting to sit, and coughing multiple times. Copious thick white secreations suctioned from ETT. Pt also has copious thick white oral secreations. Vent settings changed to PS 5/5, 30%, pts SPO2 remained > 90%. Attempted sedation vacation for approximately one hours. Pts HR increased to 90's, BP stable, and remained in NSR. Due to increased agitation sedation vacation stopped. Pt unable to follow commands at this time. Also, pt had large loose bowel movement with foul oder.
--- NOTE | 2020-07-27 06:30 | NUR ---
Shift Summary Pt continues to be sedated and intubated. Vent settings of PS 5, Peep 5, FIO2 30%, SPO2 > 90%. Propofol 35 mcg/kg/min and Precedex 1.4 mcg/kg/hr. Pt resting after sedation vacation. Moves all extrems spontaneously, responds to noxious stimuli. Pivot at goal of 35 ml/hr, Resdiual of [address], draining to gravity. VSS. NSR. Will report to oncoming shift.
--- NOTE | 2020-07-27 07:12 | NUR ---
Received report from Tiomthy EUGENE. Patient is intubated and sedated. Patient is intubated with 8.0 ET and is 24 cm at lips with setting spon. mode and PS 5, FiO2 30% and PEEP 5.0 with sats 98%. Patient has 20ga IV in LACdressing intact and site WNL's infusing Propof at 35 mcg/kg/min and NS TKO. He also has 20ga IV in RFA dresssing intact and site WNL's and is infusing Precedex 1.4 mcg/kg/hr. He has 16Fr temp winter draining to garvity parmjit colored urin and temp of 98.8. OG is in place infusing Pivot 1.5 at 35 ml/hr with 30 ml water flushes Q4.
--- NOTE | 2020-07-27 09:30 | NUR ---
0742 stopped Propofol and was off until [address] ruiz came back. About ten minutes prior patient started to get agitated and stayed in room. When Dr Ruiz in room patient was unable to follow commands and or tracking with eye movement. Placed back on Propofol 35 mcg/kg/min and patient started to calm back down, No vent setting changes. VSS, See EMR
--- NOTE | 2020-07-27 12:40 | NUR ---
No significant changes with patient,, vent settings or gtt. He has been less agitated and resting quietly.
--- NOTE | 2020-07-27 15:15 | NUR ---
PATIENT STARTED TO COUGH HIGH PEAK PRESSURES AND HAD COPIUS AMOUNTS OF LIGHT JUAN SECRETIONS AND CLEAR ORAL SECRETIONS. CLEANED UP SMALL LIQUID BROWN STOOL AND CHANGED LINEN. VSS, SEE EMR NO CHANGES TO VENOR GTT SETTINGS. SCD REMAIN IN PLACE.
--- NOTE | 2020-07-27 17:55 | NUR ---
Secretions have increased. Vent settings Spon. mode PS 5, Fio2 30%, Peep 5.0 and sats 92%. Propofol remains at 35 mcg/kg/min and Precedex at 1.4 mcg/kg/hr and NS TKO. Mcpherson draining to gravity and has 800 dark parmjit urine. Placed rectal tube for 2nd watery farfan stool. SCD in place.
--- NOTE | 2020-07-27 20:00 | NUR ---
Care Assumed 1900 Pt intubated and sedated. Vent settings of PS 5/5, FIO2 30%, SPO2 > 90%. Propofol at 35 mcg/kg/min and Precedex 1.4 mcg/kg/hr. Pt with increased agitation during care, pulling on restraints but not following directions. Treated per emar with Ativan. Mcpherson in place, draning to gravity. OG tube infusing Pivot 1.5 at 35 ml/hr with 30 ml Q4H flush.
--- NOTE | 2020-07-27 22:50 | NUR ---
Called Dr. Nagi Lazar called and updated on pt status. Pt with increased agitation, pulling at restraints, attempting to sit up in bed, and thrashing in bed. HR elevated to 90-110's and BP elevated as well. Vent settings remain unchanged, PS 5/5, FIO2 30%, SPO2 > 90%. Recieved new orders to increase Propofol and new orders for Fentanyl.
--- NOTE | 2020-07-27 23:43 | NUR ---
Update- Pt Resting Propofol at 50 mcg/kg/min and Precedex 1.4 mcg/kg/hr. Treated with PRN Fentanyl 50 mcg with good effect. Pt no longer pulling at retraints or thrashing in bed. Pt grimaces during oral care. Vent settings unchanged.
[2020-07-28 03:39] LABS: BASOPHILS ABSOLUTE AUTO 0.02 K/mm3 (0.00-0.23); BASOPHILS PERCENT AUTO 0 % (0-2); EOSINOPHILS PERCENT AUTO 2 % (0-6); Hematocrit 38.2 % (37.0-53.0); Hemoglobin 12.7 g/dL (13.5-17.5); IMMATURE GRAN ABSOLUTE AUTO 0.03 K/mm3 (0.00-0.10); IMMATURE GRAN PERCENT AUTO 1 % (0-1); LYMPHOCYTES ABSOLUTE AUTO 0.64 K/mm3 (0.84-5.20); LYMPHOCYTES PERCENT AUTO 10 % (21-46); MONOCYTES ABSOLUTE AUTO 0.91 K/mm3 (0.16-1.47); MONOCYTES PERCENT AUTO 14 % (4-13); Mean Corpuscular HGB 33.4 pg (26.0-34.0); Mean Corpuscular HGB Conc 33.2 g/dL (31.5-36.5); Mean Corpuscular Volume 101 fL (80-100); NEUTROPHILS ABSOLUTE AUTO 4.94 K/mm3 (1.96-9.15); NEUTROPHILS PERCENT AUTO 74 % (41-73); NRBC ABSOLUTE 0.02 K/mm3 (0.00-0.02); NRBC Auto 0.3 /100 WBC (0.0-0.2); Platelet Count 182 K/mm3 (150-400); RDW Coefficient Variation 12.7 % (11.7-14.2); White Blood Cell Count 6.64 K/mm3 (4.00-11.30)
[2020-07-28 04:03] LABS: Anion Gap 5 mmol/L (6-16); Blood Urea Nitrogen 16 mg/dL (8-24); Bun/Creatinine Ratio 24.5 (12.0-20.0); CO2, Blood 25 mmol/L (21-32); Calcium, Blood 8.3 mg/dL (8.5-10.1); Chloride, Blood 110 mmol/L (98-108); Creatinine, Blood 0.65 mg/dL (0.60-1.20); Glomerular Filtration Rate >60 (60-); Glucose, Blood 118 mg/dL (70-99); Magnesium, Blood 1.7 mg/dL (1.6-2.4); Phosphorus, Blood 3.9 mg/dL (2.5-4.9); Potassium, Blood 3.9 mmol/L (3.5-5.5); Sodium, Blood 140 mmol/L (136-145)
[2020-07-28 04:56] LABS: PCO2 Arterial 31.8 mmHg (35-45); PO2 Arterial 68.3 mmHg (80-100)
--- NOTE | 2020-07-28 05:22 | NUR ---
Shift Summary Pt remains intubated and sedated. Propofol at 50 mcg/kg/min and Precedex 1.4 mcg/kg/hr. Pt continues to have occasional episodes of coughing, pulling at restriants, and moving head back/forth while oral care/respoisitions are being done. Overall, pt has improvement in agitations after increasing propofol and one time treatment with Fentanyl 50 mcg earlier in the night. Pivot 1.5 at goal of 35 ml/hr. Mcpherson in place draining to gravity. VSS.NSR.
--- NOTE | 2020-07-28 07:30 | NUR ---
Received report from Timothy EUGENE. Patient is intubated and sedated. He has 8.0 ET and 24 cm at teeth with vent setting Spon. mode PS 5, FiO2 30%, Peep 5.0 and sats 96%. He has New PowerGlide to ASHLEY and is infusing Propofol at 50 mcg/kg/min, Precedex at 1.4 mcg/kg/hr, and NS TKO. He has OG in place infusingPivot 1.5 at 35 ml/hr and 30 mlQ$ water flushes. He has 16Fr winter draing dark parmjit urine and has temp of 98.8. SCD bilateral to LE's. Bilateral soft wrist restraint to protect lines and tubes. He also has rectal tube in place for watertan stools.
--- NOTE | 2020-07-28 09:38 | NUR ---
Patient has been resting with little agitation. No vent or gtt changes. He remaisn in soft bilateral wrist restraints. Mcpherson and rectal tube patent.
--- NOTE | 2020-07-28 11:30 | NUR ---
There continues to be no changes with patient, vent, and gtt. Patient remains on Propofol 50 mcg/kg/min and Precedex 1.4 mcg/kg/hr. Vent settings of Spon. mode, PS 5, FiO2 30%, PEEP 5.0 and sats >90%.
--- NOTE | 2020-07-28 14:12 | NUR ---
Dr Lazar want to wean patient and gave 4 mg Ativan and placed Propofol on standby and will see if awkens and follows commands. VSS, See EMR. Remain on same vent settings. Precedex remains at 1.4 mcg/kg/hr during weaning. Daughter called and gave her update.
--- NOTE | 2020-07-28 16:39 | NUR ---
Wean lasted for about and hour and he finally awoke and still not foloowing instructions and just flails in bed, Propofol turned back on and is at 50 mcg/kg/min. VSS, See EMR. He is back to resting quietly. No changes to vent or gtt settings.
--- NOTE | 2020-07-28 18:37 | NUR ---
Patient continues to bed sedated and intubated. Vent setting AC 18, TV 400, FiO2 60% and PEEP 5.0 and sats >90%. PowerGlide ASHLEY infusing Propofol at 50 mcg/kg/min and Precedex at 1.4 mcg/kg/hr. RFA 20 ga IV infuising NS TKO. He has OG with Pivot 1.5 at goal rate of 35ml/hr and 30 mlwater flushes Q4. 16 Fr. winter draining to gravity had 1150 parmjit urine out. SCD's bilateral LE's and Bilateral soft wrist restraints.
--- NOTE | 2020-07-28 20:53 | NUR ---
Care Assumed 1899 Report recieved from JABIER Huddleston. Pt intubated and sedated. Vent settings of PS 5/5, FIO2 30%, SPO2 > 95%. When care assumed Propofol at 50 mcg/kg/min infusing via ASHLEY PowerGlide, titrated to 45 mcg/kg/min. Precedex 1.4 mcg/kg/hr, titrated to 1.3 mcg/kg/hr. Pt grimaces during oral care but not following directions/commands. OG tube in place with Pivot 1.5 at goal of 35 ml/hr, bowel tones hypoactive. SWB in place. NSR. HR 50's, BP Stable. Mcpherson in place draining to gravity, dark parmjit urine in bag. Rectal tube in place with loose farfan BM. SCD's in place.
[2020-07-29 04:49] LABS: BASOPHILS ABSOLUTE AUTO 0.02 K/mm3 (0.00-0.23); BASOPHILS PERCENT AUTO 0 % (0-2); EOSINOPHILS ABSOLUTE AUTO 0.14 K/mm3 (0.00-0.68); EOSINOPHILS PERCENT AUTO 2 % (0-6); Hematocrit 38.3 % (37.0-53.0); Hemoglobin 12.6 g/dL (13.5-17.5); IMMATURE GRAN ABSOLUTE AUTO 0.03 K/mm3 (0.00-0.10); IMMATURE GRAN PERCENT AUTO 1 % (0-1); LYMPHOCYTES ABSOLUTE AUTO 0.57 K/mm3 (0.84-5.20); LYMPHOCYTES PERCENT AUTO 10 % (21-46); MONOCYTES ABSOLUTE AUTO 1.09 K/mm3 (0.16-1.47); MONOCYTES PERCENT AUTO 18 % (4-13); Mean Corpuscular HGB 33.5 pg (26.0-34.0); Mean Corpuscular HGB Conc 32.9 g/dL (31.5-36.5); Mean Corpuscular Volume 102 fL (80-100); Mean Platelet Volume 10.2 fL (9.1-12.4); NEUTROPHILS ABSOLUTE AUTO 4.14 K/mm3 (1.96-9.15); NEUTROPHILS PERCENT AUTO 69 % (41-73); NRBC ABSOLUTE 0.02 K/mm3 (0.00-0.02); NRBC Auto 0.3 /100 WBC (0.0-0.2); Platelet Count 239 K/mm3 (150-400); RDW Coefficient Variation 12.8 % (11.7-14.2); RDW Standard Deviation 48.4 fL (35.1-46.3); Red Blood Cell Count 3.76 M/mm3 (4.30-5.90); White Blood Cell Count 5.99 K/mm3 (4.00-11.30)
[2020-07-29 05:09] LABS: Alanine Aminotransfer (ALT/SGP 58 U/L (12-78); Albumin, Blood 2.2 g/dL (3.4-5.0); Albumin/Globulin Ratio 0.5 (0.8-1.8); Alk Phos 64 U/L (50-136); Anion Gap 6 mmol/L (6-16); Aspartate Aminotrans (AST/SGOT 36 U/L (12-37); Bilirubin, Total 0.3 mg/dL (0.1-1.0); Blood Urea Nitrogen 21 mg/dL (8-24); Bun/Creatinine Ratio 33.5 (12.0-20.0); CO2, Blood 25 mmol/L (21-32); Chloride, Blood 111 mmol/L (98-108); Creatinine, Blood 0.63 mg/dL (0.60-1.20); Globulin, Blood 4.2 g/dL (2.2-4.0); Glomerular Filtration Rate >60 (60-); Glucose, Blood 131 mg/dL (70-99); Potassium, Blood 3.9 mmol/L (3.5-5.5); Sodium, Blood 142 mmol/L (136-145); Total Protein, Blood 6.4 g/dL (6.4-8.2)
--- NOTE | 2020-07-29 06:41 | NUR ---
Shift Summary Pt intubated and sedated. Propofol at 50 mcg/kg/min and Precedex 1.4 mcg/kg/hr, had to be titrated up due to pt with increased agitation, see flow sheet. Pulling at restraints, frequent coughing, and moving head back/forth. Vent settings unchanged, PS 5/5, 30%, SPO2 > 95%. Thick medium-large secretion's from ETT tube. Oral secretion's have also increased T/O the shift from minimal to moderate, white in color. Pt does not open eyes or follow commands. Mcpherson in place, draining to gravity (600 mls of dark parmjit urine). SCD's in place. OG tube in place with Pivot 1.5 at goal of 35 ml/hr, and 0 residual. Rectal tube in place with 100 mls of watery brown stool. VSS. NSR. Will report to oncoming shift.
--- NOTE | 2020-07-29 08:59 | NUR ---
CARE OF PT ASSUMED AT 0700. PT SEDATED ON PROPOFOL AT 50MCG, PRECEDEX AT 1.4MCG FOR MECH VENT. VENT: PS 5/30%/ PEEP 5. TV BETWEEN 270-350. RESP RATE 25-35. PT GIVEN ATIVAN 4MG FOR SEVERE AGITATION; TRASHING HEAD BACK AND FORTH. PT DOES NOT OPEN EYES OR FOLLOW DIRCTIONS. ATIVAN HELPED CALM PT. COPIOUS AMTS OF SECRETIONS SUCTIONED FROM ORAL AND ETT. SECRETIONS FROM ETT THICK AND FOAMY WHITE. LUNGS ARE VERY TIGHT T/O W SCATTERED EXP WHEEZES.
--- NOTE | 2020-07-29 11:07 | NUR ---
Palliative care visit: Mrak is currently on a vent. Spoke with nursing and received an update. Reviewe POC with nursing. Currently sedated with propofol and precedex drips. He did not awaken when ear probe readjusted on his ear lobe. Progress notes from MDs reviewed. Pt admitted with likely intentional OD and ETOH. PC will plan to follow for symptom manamgent and advanced care planning as needed.
--- NOTE | 2020-07-29 13:00 | NUR ---
PT CONT TO HAVE SCATTERED WHEEZES; UDN'S ORDERED. DR FU IN TO SEE PT EARILER; FULL UPDATE GIVEN. SCHEDULED LIBRIUM STARTED DOWN OGT. ETT RETAPED. PT SHAVED AND HAIR SHAMPOOED. NO OTHER CHANGES.
--- NOTE | 2020-07-29 17:58 | NUR ---
PROPOFOL DECREASED TO 45MCG, PRECEDEX DECREASED TO 1.2MCG. ATIVAN 4MG GIVEN ONCE THIS AM. LIBRIUM SEEMED TO WORK WELL. PT CALM AND SEDATED T/O MOST OF SHIFT. PT TOLERATING TUBE FEEDINGS WELL. PT REMAINED ON SPONT PS5 T/O SHIFT W/O ISSUES. ETT RETAPED THIS SHIFT BY RT. PT HAS POSITIONAL AIR LEAK TO ETT; TV REMAIN STABLE. COPIOUS AMTS OF ORAL SECRETIONS AND ETT SECRETIONS SUCTIONED T/O SHIFT.
--- NOTE | 2020-07-29 22:14 | NUR ---
SHIFT ASSESSMENT ASSUMED CARE @ 1900, REPORT RECV'D FROM BRUCE EUGENE. PT INTUBATED AND SEDATED ON PROPOFOL @ 45MCG, PRECDEX @ 0.7MCG. VENT PS 5/5 @ 25% c 02 SATS >95%. YELLOW, THICK SECRETION WITH SUCTION OF ET TUBE. PT APPEARS TO BE COMFORTABLE AT THIS TIME. TF @ GOAL RATE, MINIMAL RESIDUAL. BARNES CATH DRAINING CANDIDO URINE. RECTAL TUBE IN PLACE, DRAINING LOOSE, BROWN STOOL. SCD'S IN PLACE BLE. UBALDO RESTRAINTS IN PLACE TO PROTECT LINES AN ET TUBE. WILL CONTINUE TO MONITOR.
[2020-07-30 03:37] LABS: Base Excess Venous 2.4 mmol/L; Bicarbonate Venous 26.5 mmol/L (24.0-30.0); PCO2 Venous 37.3 mmHg (38-42); PO2 Venous 96.7 mmHg (38-42); pH Blood Venous 7.46 (7.34-7.37)
[2020-07-30 03:39] LABS: BASOPHILS ABSOLUTE AUTO 0.05 K/mm3 (0.00-0.23); BASOPHILS PERCENT AUTO 1 % (0-2); EOSINOPHILS ABSOLUTE AUTO 0.17 K/mm3 (0.00-0.68); EOSINOPHILS PERCENT AUTO 2 % (0-6); Hematocrit 36.6 % (37.0-53.0); Hemoglobin 12.1 g/dL (13.5-17.5); IMMATURE GRAN ABSOLUTE AUTO 0.03 K/mm3 (0.00-0.10); IMMATURE GRAN PERCENT AUTO 0 % (0-1); LYMPHOCYTES ABSOLUTE AUTO 0.76 K/mm3 (0.84-5.20); LYMPHOCYTES PERCENT AUTO 11 % (21-46); MONOCYTES ABSOLUTE AUTO 1.02 K/mm3 (0.16-1.47); MONOCYTES PERCENT AUTO 15 % (4-13); Mean Corpuscular HGB 33.8 pg (26.0-34.0); Mean Corpuscular HGB Conc 33.1 g/dL (31.5-36.5); Mean Corpuscular Volume 102 fL (80-100); Mean Platelet Volume 10.2 fL (9.1-12.4); NEUTROPHILS ABSOLUTE AUTO 4.91 K/mm3 (1.96-9.15); NEUTROPHILS PERCENT AUTO 71 % (41-73); Platelet Count 290 K/mm3 (150-400); RDW Coefficient Variation 12.8 % (11.7-14.2); RDW Standard Deviation 48.6 fL (35.1-46.3); Red Blood Cell Count 3.58 M/mm3 (4.30-5.90); White Blood Cell Count 6.94 K/mm3 (4.00-11.30)
[2020-07-30 04:00] LABS: Alanine Aminotransfer (ALT/SGP 66 U/L (12-78); Albumin, Blood 2.1 g/dL (3.4-5.0); Albumin/Globulin Ratio 0.5 (0.8-1.8); Alk Phos 77 U/L (50-136); Anion Gap 6 mmol/L (6-16); Aspartate Aminotrans (AST/SGOT 39 U/L (12-37); Bilirubin, Total 0.4 mg/dL (0.1-1.0); Blood Urea Nitrogen 20 mg/dL (8-24); Bun/Creatinine Ratio 30.8 (12.0-20.0); CO2, Blood 27 mmol/L (21-32); Calcium, Blood 8.4 mg/dL (8.5-10.1); Chloride, Blood 109 mmol/L (98-108); Creatinine, Blood 0.65 mg/dL (0.60-1.20); Globulin, Blood 4.3 g/dL (2.2-4.0); Glomerular Filtration Rate >60 (60-); Glucose, Blood 135 mg/dL (70-99); Magnesium, Blood 2.1 mg/dL (1.6-2.4); Phosphorus, Blood 3.9 mg/dL (2.5-4.9); Potassium, Blood 3.7 mmol/L (3.5-5.5); Sodium, Blood 142 mmol/L (136-145); Total Protein, Blood 6.4 g/dL (6.4-8.2)
--- NOTE | 2020-07-30 06:01 | NUR ---
SHIFT SUMMARY PT REMAINS INTUBATED AND SEDATED, PROPOFOL TITRATED UP TO 50MCG. PRECEDEX REMAINS @ 0.7MCG. NO CHANGES IN VENT SETTINGS, O2 SATS >95%. COPIOUS AMOUNTS OF THICK ORAL SECRETIONS SUCTIONED FROM ETT T/O THE NIGHT. PT ALSO MAKING LARGE QUANTITIES OF ORAL SECRETIONS. TF WITH NO RESIDUALS, REMAIN @ GOAL RATE. ICE PACKS TO AXILLA FOR TEMPORAL TEMP OF 99.9. NO OTHER ACUTE CHANGES, WILL CONTINUE TO MONITOR.
--- NOTE | 2020-07-30 09:30 | NUR ---
CARE ASSUMED OF PT AT 0700. PT SEDATED ON PROPOFOL AT 50MCG AND PRECEDEX AT 0.7MCG FOR MECH VENT. PT DOES NOT OPNE EYES OR FOLLOW DIRECTIONS BUT APPEARS LESS AGITATED OVERALL COMPARED TO YESTERDAY. WILL ATTEMPT TO TITRATE SEDATION DOWN TOLERATED. PT CONTINUES TO HAVE COPIOUS AMTS OF ORAL AND ETT SECRETIONS. BP SOMEWHAT HYPOTENSIVE BUT W MAPS >65. PT TOLERATED TUBE FEEDING WELL. NEW TUBING HUNG. DR FU IN THIS AM; FULL UPDATE GIVEN. PT ON PS 5, FIO2 30%, PEEP 5. SATS > 90%; TOLERATED VENT WELL AT THIS TIME
--- NOTE | 2020-07-30 10:19 | NUR ---
[employer] CALLED FOR UPDATE; UPDATE GIVEN. THEY WILL CALL IN COUPLE OF DAYS TO CHECK ON PT.
--- NOTE | 2020-07-30 11:07 | NUR ---
ETT ADVANCED TO 25CM AT THE TEETH BY RT PER DR FU.
--- NOTE | 2020-07-30 13:01 | NUR ---
PROPOFOL HAS BEEN TITRATED DOWN TO 30MCG, AND PRECEDEX DOWN TO 0.5MCG. PT OPENS EYES TO VOICE, BUT DOES NOT TRACK, DOES NOT FOLLOW DIRECTIONS. WILL CONT TO TITRATE SEDATION DOWN TOLERATED.
--- NOTE | 2020-07-30 18:55 | NUR ---
PRECEDEX PLACED ON STAND BY AT 1530, DR FU WANTED TO ATTEMPT TO TITRATE PRECEDEX OFF AND TO USE PROPOFOL AND FENT( AJUNCT TO SEDATION). PT BECAME INCREASINGLY DIAPHORETIC, WITH INCREASING BP. PT VIOLENTLY COUGHED AND GAGGED ON ETT WITH EXCESSIVE AMTS OF ETT AND ORAL SECRETIONS (MORE THAN PRIOR AMT). FENTANYL DID NOT SEEM TO HELP. HEART RATE ALSO INCREASED TO 120'S. PRECEDEX RESUMED AT 0.5MCG AT 1845.
--- NOTE | 2020-07-30 19:00 | NUR ---
ASSUMED CARE ASSUMED CARE OF PATIENT. REMAINS INTUBATED- SPONTANEOUS PS 5, PEEP 5, FIO2 30%. RR 20s. COPIOUS ORAL SECRETIONS NOTED. MODERATE AMOUNTS OF THICK YELLOW SPUTUM, WELL. SEDATED WITH PROPOFOL AT 40MCG/KG/MIN AND PRECEDEX AT 0.5MCG/KG/HR. OPENS EYES SPONTANEOUSLY. MOVES ALL EXTREMITIES, BUT NOT FOLLOWING COMMANDS. CORY, 2-3MM. BILATERAL SOFT WRIST RESTRAINTS IN PLACE TO PREVENT SELF-EXTUBATION. INCREASED AGITATION NOTED WITH STIMULATION, BUT SEEMS TO CALM DOWN QUICKLY. MONITOR SHOWS ST, RATE 110-120s. SBP 150-170s. OG WITH PIVOT 1.5 AT GOAL RATE OF 35CC/HR. 30CC H20 FLUSH Q4H. RECTAL TUBE IN PLACE WITH LIQUID BROWN STOOL. BARNES PATENT AND DRAINING YELLOW URINE. SCDs TO BLE. SEE SHIFT ASSESSMENT FOR FULL ASSESSMENT.
[2020-07-31 04:04] LABS: Anion Gap 5 mmol/L (6-16); Blood Urea Nitrogen 18 mg/dL (8-24); Bun/Creatinine Ratio 28.3 (12.0-20.0); CO2, Blood 28 mmol/L (21-32); Calcium, Blood 8.7 mg/dL (8.5-10.1); Chloride, Blood 109 mmol/L (98-108); Creatinine, Blood 0.64 mg/dL (0.60-1.20); Glomerular Filtration Rate >60 (60-); Glucose, Blood 148 mg/dL (70-99); Potassium, Blood 3.7 mmol/L (3.5-5.5); Sodium, Blood 142 mmol/L (136-145)
--- NOTE | 2020-07-31 05:50 | NUR ---
SHIFT SUMMARY NO ACUTE CHANGES DURING NOC. REMAINS INTUBATED AND ON SAME VENT SETTINGS- PS 5, PEEP 5, FIO2 30%. CONTINUES WITH COPIOUS ORAL SECRETIONS. SEDATED WITH PROPOFOL BETWEEN 35-40MCG/KG/MIN- NOW AT 35MCG/KG/MIN. PRECEDEX BETWEEN 0.4-0.5MCG/KG/HR- NOW AT 0.4MCG/KG/HR. MEDICATED WITH ATIVAN 2MG IV X 1 DOSE FOR INCREASED AGITATION. INCREASED AGITATION NOTED AT TIMES WITH STIMULATION, BUT SEEMS TO CALM DOWN QUICKLY. VSS. AFEBRILE. OG WITH PIVOT 1.5 AT GOAL RATE OF 35CC/HR. RESIDUALS <10CC. RECTAL TUBE WITH LIQUID BROWN STOOL. BARNES PATENT AND DRAINING DARK YELLOW/CANDIDO URINE. SCDs TO BLE. WILL REPORT TO ONCOMING RN WHEN AVAILABLE.
--- NOTE | 2020-07-31 08:47 | NUR ---
AM NOTE... ASSUMED CARE OF PT AT 0715. PT IS INTUBATED AND SEDATED VENT SETTINGS SPONTANIOUS PRESSURE SUPPORT AT 5/5 AND 30% FIO2 WITH O2 SATS >90% RR 16-18 EVEN AND UNLABORED. L/S COARSE T/O DIM IN THE BASES, THICK WHITE/YELLOW SECRETION SUCTIONED FROM ET TUBE. PT HAS COPIOUS AMOUNTS OF THICK ORAL SECRETIONS. ET TUBE 8.0 AND 25 AT THE TEETH. TUBE FEED RUNNING TO OG PER ORDERS AND AT GOAL OF 35MLS/HR WITH NO RESIDUALS NOTED. BT PRESENT AND HYPOACTIVE, ABD HAS MILD DISTENTION AND FIRM TO PALP. RECTAL TUBE IS PATENT AND DRAINING LIQUID BROWN STOOLS TO GRAVITY. PT IS IN NSR IN THE 70'S-80'S, BPs STABLE. PT HAS DEPENDENT EDEMA NOTED TO HIS BILAT HANDS, RESTRAINTS IN PLACE TO PREVENT SELF EXTUBATION. PT HAS 1+ EDEMA NOTED TO HIS BLE. PT IS ON PROPOFOL AT 35MCG/KG/MIN AND PRECEDEX RUNNING AT 0.4MCG/KG/HR, RESPONDS TO PAINFUL STIMULI, OPENS EYES SPONTANIOUSLY BUT WITH NO PURPOSEFUL MOVEMENTS, NO TRACKING WITH HIS EYES DURING THESE TIMES. WILL CONTINUE TO MONITOR.
--- NOTE | 2020-07-31 12:18 | NUR ---
PT UPDATE... AT 1143 DR. FU AT THE BEDSIDE, PROPOFOL WAS DECREASED FROM 35MCG TO 10MCG AND PRECEDEX WAS INREASED FROM 0.4MCG TO 0.7 MCG, APROX 10MINS LATER THE PT BEGAN TO COUGH, HE WAS GIVEN 25MCG OF FENTANYL IV WHICH HELPED TO CALM THE COUGHING. PER DR. FU SHE WANTS TO USE THE FENTANYL TO HELP WITH SEDATION AND EASE THE COUGHING SPELLS. AT 1218 PROPOFOL WAS PUT ON STANDBY. PT CONTINUES TO STAY UNRESPONSIVE, PT IS NOT WITHDRAWING FROM PAINFUL STIMULI AT THIS TIME. WILL CONTINUE TO MONITOR.
--- NOTE | 2020-07-31 15:42 | NUR ---
Spiritual care note: I met with Mark's mom, Scarlet, at bedside. She lives in [place] and will be leaving tomorrow. She shared some of Tr's history. Apparently, when his older brother was killed by a drunk sanitation truck driver at 15, Tr "never recovered." According to Scarlet, alma delia ahs been a very heavy drinker all of his adult life. He had been with his significant other "for about 8 years." She was also a heavy drinker and quickly a few weeks ago. Scarlet states, "Honestly, I am amazed either one of them lasted this long." Mark does not have any family living in this state, and according to his mom, very few friends. She is hoping he will get into a rehab facility and get some counseling for his unresolved grief. Scarlet tells me that she will move in with him "and take care of him." Scarlet was appreciaitve of prayer and appeared to benefit from emotional affirmation and counseling. Scarlet is not in good health and has some physical limitations. Mark appeared restless, confused throughout conversation. Dtr, Juliann, will be here tomorrow. I will remain available.
--- NOTE | 2020-07-31 18:34 | NUR ---
SHIFT SUMMARY... NO ACUTE NEGATIVE CHANGES NOTED THIS SHIFT. PT'S VS HAVE BEEN STABLE T/O SHIFT. PT WAS TITRATED OFF THE PROPOFOL AND STAYED OFF IT UNTIL 1746 WHEN THE PROPOFOL WAS RESTARTED D/T INCREASED AGITATION AND SEVERE COUGHING FITS. PER DR. FU TRY AND KEEP THE PROPOFOL OFF OR LOW POSSIBLE, USE FENTANYL Q1HR IF NEEDED FOR COUGHING/AGITATION. PT CONTINUES TO HAVE COPIOUS AMOUNTS OF ORAL SECRETIONS. BARNES PATENT AND DRAINING DARK YELLOW URINE TO GRAVITY. RECTAL TUBE IN PLACE AND DRAINING LIQUID BROWN STOOLS. DURING THE SEDATION VACATION THE PT WAS ONLY ON PRECEDEX AT 0.4MCG, PT'S MOTHER WAS HERE AT THAT TIME, PT WOULD OPEN HIS EYES AND LOOK AROUND, WOULD LOOK TOWARDS SOUNDS BUT WOULD NOT FOLLOW DIRECTIONS. PER DR. FU THE PLAN IS TO EXTUBATE TOMORROW. PT'S MOTHER WAS AT THE BEDSIDE FOR SEVERAL HOURS THIS AFTERNOON. CALL LIGHT IN REACH WILL CONTINUE TO MONITOR UNTIL REPORT IS GIVEN TO ONCOMING RN.
--- NOTE | 2020-07-31 19:47 | NUR ---
Care Assumed 1900 Pt intubated and sedated. PS 5/5, 30%, spo2 > 90%. Propofol at 10 mcg/kg/min and Precedex 0.7 mcg/kg/hr. Pt opens eyes to pressure and to sound occasionally. Unable to follow directions and does not track with eyes. OG tube in place with PIVOT 1.5 at goal of 35 ml/hr, residual of 10 mls, bowel tones hypoactive. VSS. NSR. Rectal tube and winter draining to gravity.
--- NOTE | 2020-08-01 05:02 | NUR ---
Update - Tube disloged 22 cms Pt moving head back/forth, tube disloged 22 cm's. RT notified and tube repositioned to 25 cm's at teeth. Pt tolerated well. Treated with Fentanyl 50 mcg PRN. Propofol at 10 mcg/kg/min and Precedex 0.7 mcg/kg/hr. Vent settings unchanged. Pt continues to have thick white secreations from ET tube and oral secreations. SWB in place. Pt not following commands but opening eyes to sound/not tracking. VSS. NSR. SPO2 > 90%.
--- NOTE | 2020-08-01 07:35 | NUR ---
Shift Summary Propofol and Precedex unchanged. Vent settings unchanged. Pt continues to have "coughing fits", pulling at restraints, and unable to follow commands. Treated with Fentanyl 50 mcg with good effect. Thick secreations continue to be present, frequent oral care done. Will report to oncoming shift.
--- NOTE | 2020-08-01 07:38 | NUR ---
Permission given for student nurse care on 08/01/20 at 0700
--- NOTE | 2020-08-01 08:00 | NUR ---
ASSUMED CARE OF PT PT RESTING IN BED, SEDATED AND VENTILATED. STRONG COUGH WITH COPIOUS AMOUNT CLEAR OF ORAL SECREATIONS. WITH STIMULATION, PT BECOMES RESTLESS AND PULLS AT RESTRAINTS. PRN FENTYNAL USED TO ASSIST WITH SEDATION, SEE EMAR FOR DOCUMENTATION. PT CURRENTLY AWAKENS TO SOUND, NOT DIRECTABLE OR FOLLOWING COMMANDS. BARNES TO GRAVITY, DRAINING CLEAR DK YELLOW URINE. RECTAL TUBE IN PLACE, NO INCREASE IN AMOUNT OF DIARRHEA. MONITOR SHOWS PT TO BE IN SINUS RHYTHM.
[2020-08-01 12:20] LABS: Influenza A, PCR NEGATIVE (NEGATIVE); Influenza B, PCR NEGATIVE (NEGATIVE); Resp Syncytial Virus, PCR NEGATIVE (NEGATIVE); SARS-Cov-2 (COVID-19) PCR, MMC NEGATIVE (NEGATIVE)
--- NOTE | 2020-08-01 12:30 | NUR ---
REASSESSMENT PT IS RESTING IN BED, SEDATED ON VENTELATOR. CAN OCCASSIONALLY GET PT TO SQUEEZE HAND ON COMMAND WITH LOTS OF ENCOURAGEMENT. DR FU ORDERED FOR FOR FENTANYL LOW DOSE CONTINOUS GTT, STOP PROPOFL AND TITRATE PRECEDEX. PT APPEARS RESPONSIVE AND CALMER WITH SEDATION ADJUSTSMENTS. NO CHANGES TO VENT SETTINGS. PT CONTINOUS ON SPONTANOUS WITH FIO2 30% AND IS MAINTAINING SPO2 >92%. PT CONTINOUS TO MAKE CLEAR COPIOUS AMOUNT OF ORAL SECREATIONS AND REQUIRES FREQENT SUCTIONING. MONITOR SHOWS PT TO BE SINUS RYHTHM, RATE HAS DECREASED SINCE PRECEDEX INCREASE.
--- NOTE | 2020-08-01 16:10 | NUR ---
REASSESSMENT PT HAS BEEN MORE ALERT, EASIER TO GET PT TO SQUEEZE HAND ON COMMAND, DOESN'T FOLLOW OTHER COMMANDS. BED BATH COMPLETED THIS AFTERNOON AND FAMILY ARRIVED AT BEDSIDE AND PT BECOME MORE AGITATED AND COUGHING ON THE VENT. INCREASE IN PRECEDEX GTT HAS CALMED PT DOWN. BP WAS SOFT WITH HIGHER PRECEDEX DOSING, BUT HAS RETURNED TO BASELINE AFTER TITRATING DOWN ON GTT. PT REMAINS ON PREVIOUS VENT SENTINGS. MONITOR SHOWS PT TO BE IN SINUS RYHTHM.
--- NOTE | 2020-08-01 18:11 | NUR ---
SHIFT SUMMARY PT IS SEDATED ON THE VENTILATOR, RESPONDS TO VOICE, OCCASSIONALLY GRIPPING HANDS ON COMMAND. VENTILTOR REMAINS ON SPONT, PEEP 5. FIO2 30%. SPO2 HAS REMAINED >92% TODAY. SEDATION WAS ADJUSTED TODAY AND PT TOLERATED WELL AND THIS AFTERNOON WAS ABLE TO TITRATE BACK DOWN ON THE PRECEDEX. BP'S HAVE STABILIZED. PT STILL REQUIRES FREQUENT SUCTIONING. RECTAL TUBE IN PLACE BUT MINIMAL OUTPUT TODAY. BARNES TO GRAVITY DRAINING DK YELLOW URINE. MONITOR SHOWS PT TO BE IN SINUS RHTYHM.
--- NOTE | 2020-08-01 19:25 | NUR ---
Provider Call Spoke to Dr. Martin in regards to managing patient pain/agitation. Recieved orders to first increase Precedex, after that try PRN fentanyl, and if still needed use Propofol. Pt currently on Precedex at 0.8 mcg/kg/hr and Fentayl SIEVE GRADER TENDER at continous rate of 13 mcg/hr. HR 74, BP 99/65 - MAP 74. .
--- NOTE | 2020-08-01 21:44 | NUR ---
Care Assumed 1900 Pt intubated and sedated. Precedex 1 mcg/kg/hr now (infusing via Powerglide to ASHLEY), see flow sheet. Precedex increased due to pt coughing, increased agitation, pulling on restraints, legs off the side of bed railing, and thrashing head back/forth in bed. Attempted to reorient patient multiple times without success. Pts eyes open to sound or spontaneous, unable to follow commands but was able to squeeze hand once when asked. SWB in place. Fentanyl continuos PLATE SHOP HELPER infusing via left wrist IV. Vent settings PS 5/5, fio2 30%, SPO2 > 90%. Copious thick white/yellow secretions present, frequent oral care done. HR 60's, BP 113/73, temporal temp of 99.0, and NSR. New rectal tube placed due to previous one found to be dislodged. Pt continues to have watery/loose brown BM, pt tolerated new rectal tube placement well. Mcpherson in place draining to gravity.
[2020-08-02 04:50] LABS: BASOPHILS ABSOLUTE AUTO 0.05 K/mm3 (0.00-0.23); BASOPHILS PERCENT AUTO 1 % (0-2); EOSINOPHILS ABSOLUTE AUTO 0.19 K/mm3 (0.00-0.68); EOSINOPHILS PERCENT AUTO 2 % (0-6); Hemoglobin 11.9 g/dL (13.5-17.5); IMMATURE GRAN ABSOLUTE AUTO 0.05 K/mm3 (0.00-0.10); IMMATURE GRAN PERCENT AUTO 1 % (0-1); LYMPHOCYTES PERCENT AUTO 12 % (21-46); MONOCYTES ABSOLUTE AUTO 0.76 K/mm3 (0.16-1.47); MONOCYTES PERCENT AUTO 9 % (4-13); Mean Corpuscular HGB 33.8 pg (26.0-34.0); Mean Corpuscular HGB Conc 33.1 g/dL (31.5-36.5); Mean Corpuscular Volume 102 fL (80-100); Mean Platelet Volume 10.3 fL (9.1-12.4); NEUTROPHILS ABSOLUTE AUTO 6.11 K/mm3 (1.96-9.15); NEUTROPHILS PERCENT AUTO 75 % (41-73); Platelet Count 467 K/mm3 (150-400); RDW Coefficient Variation 12.9 % (11.7-14.2); RDW Standard Deviation 48.1 fL (35.1-46.3); Red Blood Cell Count 3.52 M/mm3 (4.30-5.90); White Blood Cell Count 8.16 K/mm3 (4.00-11.30)
[2020-08-02 05:00] LABS: Anion Gap 6 mmol/L (6-16); Blood Urea Nitrogen 25 mg/dL (8-24); Bun/Creatinine Ratio 36.6 (12.0-20.0); CO2, Blood 30 mmol/L (21-32); Calcium, Blood 9.1 mg/dL (8.5-10.1); Chloride, Blood 109 mmol/L (98-108); Creatinine, Blood 0.68 mg/dL (0.60-1.20); Glomerular Filtration Rate >60 (60-); Glucose, Blood 134 mg/dL (70-99); Magnesium, Blood 2.4 mg/dL (1.6-2.4); Phosphorus, Blood 3.6 mg/dL (2.5-4.9); Potassium, Blood 3.3 mmol/L (3.5-5.5); Sodium, Blood 145 mmol/L (136-145)
--- NOTE | 2020-08-02 06:00 | NUR ---
Spoke to Dr. Aragon in regards to patient K 3.3, new orders recieved.
--- NOTE | 2020-08-02 06:02 | NUR ---
Shift Summary Precedex 0.7 mcg/kg/hr and Fentanyl at continuous rate. Pt required PRN Fentanyl 50 mcg twice tonight due to increased agitation/pulling on restraints/thrashing head in bed. When Precedex titerated to 1 mcg/kg/hr, pts SBP in 80 (MAP > 65) and HR high 50's. Precedex decreased to rate of 0.7 mcg/kg/hr and medicating with PRN Fentanyl as well. Pts SBP back to SBP 90-100's within 30 minutes, see flow sheet. Decreased pt stimuli to keep pt calm. Pt unable to follow commands, opens eyes to sound but does not track. Mcpherson cath in place, 350 mls of total urine output (clear/yellow). Rectal tube in place, 0 output in bag after pts large brown BM at start of shift. Pivot 1.5 at goal of 45 ml/hr. Vent settings unchanged. Pt continues to have thick secreations from ETT.
--- NOTE | 2020-08-02 08:00 | NUR ---
Long of Care: Care assumed at 0700hr. Patient intubated and sedated with precedex gtt at 0.8mcg/kg/hr, and fentanyl COMPLIANCE REPRESENTATIVE DEALER at 13mcg/hr. Patient mostly sleeping but does wake to verbal stimuli and spontaneously. Able to follow simple commands to nod head and move extremities. Has occasional coughing fits which cause him to be restless and agitated, but able to calm patient after ET and oral suctioning and verbal redirection. Vent to PS of 5/5/30%, spO2-96-98%, VSS other than occasional coughing fits, patient tolerating vent without difficulty. Mcpherson cath patent and intact, draining dark yellow, clear urine. Rectal tube in place, draining liquid brown stool, small amount. Peripheral IV x1, and power-glide to ASHLEY patent and intact. Dr. Rao in to room to see patient this morning. Received instructions to decrease Precedex gtt to 0.4mcg/kg/hr and fentanyl COMPLIANCE REPRESENTATIVE DEALER to 5mcg/hr, plan for extubation this morning. RT Anderson made aware of plan for extubation. Will continue to monitor.
--- NOTE | 2020-08-02 10:57 | NUR ---
Extubation: Received instruction per Dr. Rao to stop precedex gt at 0930hr. Patient continued to become more alert and following simple commands. Then received order to extubate patient. RT Monica and this RN extubated patient at 1010hr. Patient placed on 2L/NC and spO2 continues at 96-98%. Patient continues to have copious amount of oral and upper airway secretions. Has strong cough but requiring frequent deep oral suctioning to remove secretions. Dr. Rao to room shortly after extubation. Received orders for racemic Epi and duoneb updrafts. Dr. Rao also stated plan to order atropine gtts. SpO2 remains 98-100%, will continue to monitor.
--- NOTE | 2020-08-02 18:49 | NUR ---
Shift Summary: See previous notes r/t extubation. After extubation patient continued to have difficulties expelling oral/upper airway secretions. PRN atropine gtt's given x2 effective to significantly decrease secretions, along with deep oral suctioning when in room. Patient also continued excessive wheezing and sings of stridor in is upper airway. PRN racemic epi given thrgouhtout early afternoon, with good effect noted. But patient again rebounded this evening, with increase in wheezing and work of breathing. Dr. Rao then ordered scheduled racemic epi q4hr, and a cool mist blow-by mask placed on patient, all in attempt to avoid re-intubation. Patient continues to have wheezes but have significantly decreased, also no longer has increased work of breathing. SpO2-remained 94-98% throughout day, VSS. Patient remains confused, but calm and cooperative with staff. Mouths words, short sentences. Will continue to monitor until report to NOC shift RN.
--- NOTE | 2020-08-02 21:00 | NUR ---
ASSUMPTION OF CARE PT VERY RESTLESS IN BED, MOUTHS SOME WORDS BUT IS DIFFICULT TO UNDERSTAND, FOLLOWS SOME DIRECTIONS. PRECEDEX INFUSING, SEE FLOWSHEET FOR RATES AND TITRATIONS, PRN FENTANYL ADMINISTERED. PT ON 9L PER FACE TENT/AERSOL MASK, PT REQUIRING FREQUENT SUCTIONING TO ASSIST WITH CLEARING SECRETIONS, SEE MAR FOR ATROPINE ADMINISTRATION. MONITOR SHOW SINUS TACH WITH HR 120'S-140'S, HYPERTENSION NOTED, HR AND BP IMPROVED AFTER FENTANYL ADMINISTRATION. DC'D RECTAL TUBE D/T VERY LITTLE OUTPUT. BARNES REMAINS IN PLACE. PT MOVES ALL EXTREMETIES BUT IS VERY WEAK.
[2020-08-03 05:20] LABS: BASOPHILS ABSOLUTE AUTO 0.07 K/mm3 (0.00-0.23); BASOPHILS PERCENT AUTO 1 % (0-2); EOSINOPHILS ABSOLUTE AUTO 0.08 K/mm3 (0.00-0.68); EOSINOPHILS PERCENT AUTO 1 % (0-6); Hematocrit 37.7 % (37.0-53.0); Hemoglobin 12.4 g/dL (13.5-17.5); IMMATURE GRAN ABSOLUTE AUTO 0.05 K/mm3 (0.00-0.10); IMMATURE GRAN PERCENT AUTO 1 % (0-1); LYMPHOCYTES ABSOLUTE AUTO 1.04 K/mm3 (0.84-5.20); LYMPHOCYTES PERCENT AUTO 10 % (21-46); MONOCYTES ABSOLUTE AUTO 0.84 K/mm3 (0.16-1.47); MONOCYTES PERCENT AUTO 8 % (4-13); Mean Corpuscular HGB 33.5 pg (26.0-34.0); Mean Corpuscular HGB Conc 32.9 g/dL (31.5-36.5); Mean Corpuscular Volume 102 fL (80-100); Mean Platelet Volume 9.5 fL (9.1-12.4); NEUTROPHILS ABSOLUTE AUTO 8.77 K/mm3 (1.96-9.15); NEUTROPHILS PERCENT AUTO 81 % (41-73); Platelet Count 522 K/mm3 (150-400); RDW Coefficient Variation 12.7 % (11.7-14.2); RDW Standard Deviation 47.7 fL (35.1-46.3); White Blood Cell Count 10.85 K/mm3 (4.00-11.30)
[2020-08-03 05:48] LABS: Anion Gap 5 mmol/L (6-16); Blood Urea Nitrogen 20 mg/dL (8-24); Bun/Creatinine Ratio 31.7 (12.0-20.0); CO2, Blood 29 mmol/L (21-32); Calcium, Blood 9.3 mg/dL (8.5-10.1); Chloride, Blood 110 mmol/L (98-108); Creatinine, Blood 0.63 mg/dL (0.60-1.20); Glomerular Filtration Rate >60 (60-); Glucose, Blood 111 mg/dL (70-99); Potassium, Blood 3.7 mmol/L (3.5-5.5); Sodium, Blood 144 mmol/L (136-145)
--- NOTE | 2020-08-03 06:46 | NUR ---
SHIFT SUMMARY PT MORE ALERT TOWARDS END OF SHIFT, VERY RESTLESS IN BED, ATTEMPTS TO GET OUT OF BED BUT UNABLE TO R/T WEAKNESS. PT ORIENTED TO SELF, LOCATION, AND FOLLOWING DIRECTIONS. PT STS HE WISHES TO SPEAK WITH HIS DAUGHTER, DISCUSSED WITH PT CALLING DAUGHTER DURING DAY FOR POSSIBLE VISIT. PTS SPEECH IS CLEARER BUT STILL DIFFICULT TO UNDERSTAND AT TIMES. PT MADE MULTIPLE COMMENTS TO THIS NURSE STATING HE NO LONGER WANTS TO LIVE. PT REFUSING CARE AT TIMES, NOT OPEN TO DISCUSSING PLAN OF CARE AND CONSEQUENCES OF NOT RECEIVING CARE SUCH POSSIBILITY OF RE-INTUBATION R/T INABILITY TO CLEAR SECRETIONS, PT STS HE CAN "COUGH IT UP AND THEN SWALLOW IT", ORAL CARE PROVIDED ORDERED. ATIVAN ADMINISTERED AND PRECEDEX INCREASED R/T AGITATION. PT REFUSES SUPPLEMENTAL OXYGEN, O2 SATURATIONS> 90% ON RA, NASAL TRUMPET PLACED THIS SHIFT FOR PRN NT SUCTIONING, PT COOPERATIVE AT TIME OF PLACEMENT AND TOLERATED SUCTIONING WELL. MONITOR SHOWS SINUS RHYTHM WITH HR FLUCTUATING FROM 80'S UP TO 120'S AT TIMES. BP STABLE. RECTAL TUBE DC'D THIS SHIFT, NO BM AFTER REMOVAL. BARNES REMAINS IN PLACE WITH GOOD OUTPUT. PT MOVES ALL EXTREMETIES BUT REMAINS VERY WEAK. PT MONITORED VIA IN ROOM CAMERA T/O SHIFT.
--- NOTE | 2020-08-03 08:10 | NUR ---
INITIAL ASSESSMENT PATIENT RESPONDING TO SOME VERBAL STIMULI. PATIENT IS SHAKING HEAD BACK AND FORTH. PATIENT IS NOW FOLLOWING ANY SIMPLE COMMANDS. PATIENT IS TRYING TO ANSWER QUESTIONS BUT IS MUMBLING QUIETLY; SPEECH INCOMPREHENSIBLE. PATIENT WITHDRAWN; ANXIOUS AT TIMES. PATIENT IS WEAK AND DECONDITIONED. PATIENT AFEBRILE. NO SIGNS OF PAIN NOTED. PATIENT SATTING 90% AND GREATER ON RA. LUNGS COARSE AND WHEEZY THROUGHOUT. NASAL TRUMPET IN PLACE TO R NARE FOR PRN NT SUCTIONING. PATIENT HAS MOIST, CONGESTED COUGH. PATIENT IS SWALLOWING SPUTUM. PATIENT IN SR, HR 70S TO 80S. SBP LOW 100S TO 120S. ABDOMEN MILDLY DISTENDED, SOFT, WITH NORMOACTIVE BS NOTED. LAST BM DOCUMENTED YESTERDAY. BARNES IN PLACE DRAINING DARK YELLOW COLORED URINE. SCATTERED ABRASIONS AND SCABS NOTED T/O. TRACE EDEMA NOTED TO BILAT HANDS. PRECEDEX INFUSING AT 0.9 MCG/ KG/ HOUR AND NS TKO. BED LOW, CALL LIGHT IN REACH. WILL CONTINUE TO MONITOR PATIENT FREQUENTLY THROUGHOUT SHIFT.
--- NOTE | 2020-08-03 09:15 | NUR ---
DR. HA UPDATED ON PATIENT CONDITION. INFORMED THAT PATIETN REFUSING CARE ON HEALTH INFORMATION SPECIALIST. INFORMED THAT PATIENT STILL SUICIDAL PER HEALTH INFORMATION SPECIALIST REPORT. INFORMED THAT PATIENT IS NOT ON ANY NUTRITION OR MAINTENANCE FLUID. INFORMED THAT SPUTUM CAME BACK POSITIVE FOR ENTEROBACTER AND KLEBSIELLA TODAY.
--- NOTE | 2020-08-03 09:30 | NUR ---
WHILE PROCUREMENT SPECIALIST IN GIVING PATIENT BEDBATH, PATIENT STATED "IF I , THEN IT IS BY MY CHOICE".
--- NOTE | 2020-08-03 12:15 | NUR ---
PATIENT HAS TEMP OF 99.3 DEGREES FAHRENHEIT. PATIENT ORIENTED TO TOWN, FAMILY AND FOLLOWING SOME SIMPLE COMMANDS. PATIENT DOES NOT ANSWER WHEN ASKED SUICIDE QUESTIONS. PATIENT DECREASED TO 0.4 MCG/ KG/ HOUR OF PRECEDEX. PATIENT REMAINS CONGESTED WITH MOIST COUGH. PATIENT GIVEN PRN ATROPINE TO HELP WITH SECRETIONS. PATIENT REMAINS SATURATING 90% AND GREATER ON RA. HR IN THE 80S. SBP IN THE 140S. PATIENT DENIES PAIN.
--- NOTE | 2020-08-03 16:43 | NUR ---
PATIENT AFEBRILE. PATIENT AGITATED ON AND OFF. PATIENT BEING GIVEN PRN ZYPREXA TO HELP WITH AGITATION. PRECEDEX DC'D PER DR. HA. HR LOW 100S TO 1-TEENS. SBP 180S PRIOR TO PRN ZYPREXA AND 140 AFTER.
--- NOTE | 2020-08-03 17:54 | NUR ---
SHIFT SUMMARY PATIENT HAS REMAINED ANXIOUS AND AGITATED OFF AND ON. DR. HA DC'D PRECEDEX THIS SHIFT AND ADDED ZYPREXA IM. PATIENT GIVEN PRN ZYPREXA X 3 AND PRN ATIVAN X 2. PATIENT WAS ORIENTED TO SELF, TOWN, FAMILY AND FOLLOWING SOME SIMPLE COMMANDS. PATIENT MUMBLES QUIETLY AND SPEECH CAN BE VERY DIFFICULT TO UNDERSTAND. PATIENT STATED THIS SHIFT, "IF I THEN IT IS BY MY CHOICE". PATIENT HAD TMAX OF 99.3 DEGREES FAHRENHEIT BUT HAD ALSO BEEN MOVING AROUND CONSTANTLY IN BED. PATIENT REMAINED SATTING 90% AND GREATER ON RA. LUNGS REMAINED WHEEZY AND COARSE. PATIENT CONTINUED TO HAVE MOIST, CONGESTED COUGH. PATIENT SR TO ST, HR 70S TO 120S. SBP LOW 100S TO 180S. PATIENT TACHYCARDIC AND HYPERTENSIVE WITH AGITATION. NO BM THIS SHIFT. BARNES DRAINED ADEQUATE AMOUNT OF DARK YELLOW URINE. PATIENT REPOSITIONED THROUGHOUT SHIFT. NS TKO, D5W INFUSING AT 50 MLS/ HOUR. PT WORKED WITH PATIENT. PATIENT RECEIVED COMPLETE BEDBATH. BED LOW, CALL LIGHT IN REACH. REPORT WILL BE GIVEN TO ASSUMING SOLAR INSTALLATION FOREMAN NURSE SHORTLY.
--- NOTE | 2020-08-03 19:30 | NUR ---
ASSUMPTION OF CARE PT RESTLESS IN BED, NOT ANSWERING QUESTIONS, RESISTANT TO NURSING CARE. O2 SATURATIONS> 90% ON RA, MONITOR SHOWS SINUS RHYTHM WITH HR 110-120'S, PT HYPERTENSIVE, MEDICATED WITH FENTANYL AND ATIVAN FOR PAIN/DISCOMFORT AND AGITATION. BARNES IN PLACE DRAINING CLEAR YELLOW URINE. D5 INF @ 50ml/hr. PT MOVES ALL EXTREMETIES, IN CAMILA VEST TO PREVENT FALLS.
[2020-08-04 05:48] LABS: BASOPHILS ABSOLUTE AUTO 0.08 K/mm3 (0.00-0.23); BASOPHILS PERCENT AUTO 1 % (0-2); EOSINOPHILS ABSOLUTE AUTO 0.12 K/mm3 (0.00-0.68); EOSINOPHILS PERCENT AUTO 1 % (0-6); Hematocrit 39.8 % (37.0-53.0); IMMATURE GRAN ABSOLUTE AUTO 0.05 K/mm3 (0.00-0.10); IMMATURE GRAN PERCENT AUTO 1 % (0-1); LYMPHOCYTES ABSOLUTE AUTO 1.36 K/mm3 (0.84-5.20); LYMPHOCYTES PERCENT AUTO 16 % (21-46); MONOCYTES ABSOLUTE AUTO 0.84 K/mm3 (0.16-1.47); MONOCYTES PERCENT AUTO 10 % (4-13); Mean Corpuscular HGB 33.1 pg (26.0-34.0); Mean Corpuscular HGB Conc 32.7 g/dL (31.5-36.5); Mean Corpuscular Volume 101 fL (80-100); Mean Platelet Volume 9.4 fL (9.1-12.4); NEUTROPHILS ABSOLUTE AUTO 6.33 K/mm3 (1.96-9.15); NEUTROPHILS PERCENT AUTO 72 % (41-73); Platelet Count 593 K/mm3 (150-400); RDW Coefficient Variation 12.6 % (11.7-14.2); RDW Standard Deviation 47.5 fL (35.1-46.3); Red Blood Cell Count 3.93 M/mm3 (4.30-5.90); White Blood Cell Count 8.78 K/mm3 (4.00-11.30)
[2020-08-04 06:08] LABS: Anion Gap 7 mmol/L (6-16); Blood Urea Nitrogen 16 mg/dL (8-24); Bun/Creatinine Ratio 24.7 (12.0-20.0); CO2, Blood 29 mmol/L (21-32); Calcium, Blood 9.6 mg/dL (8.5-10.1); Chloride, Blood 106 mmol/L (98-108); Creatinine, Blood 0.65 mg/dL (0.60-1.20); Glomerular Filtration Rate >60 (60-); Glucose, Blood 111 mg/dL (70-99); Potassium, Blood 3.7 mmol/L (3.5-5.5); Sodium, Blood 142 mmol/L (136-145)
--- NOTE | 2020-08-04 06:24 | NUR ---
SHIFT SUMMARY RESTLESSNESS AND AGITATION IMPROVED T/O SHIFT. PT MORE INTERACTIVE WITH STAFF AND ACCEPTING/COOPERATIVE AND APPRECIATIVE OF NURSING CARE. PTS SPEECH REMAINS DIFFICULT TO UNDERSTAND AT TIMES. O2 SATURATIONS> 90 ON RA, MONITOR SHOWS SINUS RHYTHM WITH HR 100-120, BP STABLE. FOELY IN PLACE WITH GOOD URINE OUTPUT, NO BM THIS SHIFT. PT MOVES ALL EXTREMETIES, REMAINS WEAK BUT STRENGTH IS IMPROVING.
--- NOTE | 2020-08-04 08:00 | NUR ---
INITIAL ASSESSMENT PATIENT MOSTLY ALERT AND ORIENTED TODAY. PATIENT DID NOT KNOW MONTH. PATIENT DENIED TAKING SIGNIFICANT OTHER'S LIQUID ATIVAN AND DENIED TRYING TO KILL HIMSELF. PATIENT ALSO DENIES ANY SI AT THIS TIME. PATIENT CALM AND COOPERATIVE BUT CAN BECOME AGITATED AND ANXIOUS AT TIMES. VOICE RASPY; EASIER TO UNDERSTAND TODAY. PATIENT AFEBRILE. PATIENT COMPLAINING OF CHRONIC AND ACUTE LEFT FOOT PAIN. PATIENT WEAK AND DECONDITIONED. PATIENT SATTING 90% AND GREATER ON RA. LUNGS CLEAR IN UPPER LOBES, COARSE IN LOWER LOBES. PATIENT HAS MOIST, CONGESTED, PRODUCTIVE COUGH. PATIENT SWALLOWING SPUTUM. PATIENT IN ST, HR LOW 100S TO 1-TEENS. SBP 130S TO 160S. LAST BM 2 DAYS AGO. BARNES IN PLACE DRAINING DARK YELLOW URINE. SCATTERED ABRASIONS AND SCABS NOTED. D5W INFUSING AT 50 MLS/ HOUR. BED LOW, CALL LIGHT IN REACH. WILL CONTINUE TO MONITOR PATIENT FREQUENTLY THROUGHOUT SHIFT.
--- NOTE | 2020-08-04 08:30 | NUR ---
DR. HA UPDATED ON PATIENT CONDITION. INFORMED THAT DESTINATION COORDINATOR REPORTED SUCTIONING UP SMALL AMOUNT OF BLOOD FROM PATIENT THROAT. INFORMED THAT DESTINATION COORDINATOR RN STATED PATIENT CHOKED ON VERY SMALL AMOUNT OF WATER FROM MOUTH SPONGE.
--- NOTE | 2020-08-04 13:11 | NUR ---
PATIENT HAS TEMP OF 99.7 DEGREES FAHRENHEIT. PATIENT AGITATED. PATIENT CONFUSED. PATIENT HAVING ACTIVE HALLUCINATION THAT SON IS HERE AND HE IS NOT. HR IN THE 130S. SBP 140S TO 150S.
--- NOTE | 2020-08-04 13:15 | NUR ---
DAUGHTER, NA, HERE TO VISIT.
--- NOTE | 2020-08-04 16:30 | NUR ---
PATIENT HAS TEMP OF 99.2 DEGREES FAHRENHEIT. HR IN THE 120S. SBP 120S TO 130S.
--- NOTE | 2020-08-04 18:47 | NUR ---
SHIFT SUMMARY PATIENT MOSTLY ALERT AT BEGINNING OF SHIFT, HOWEVER PATIENT THEN BECAME CONFUSED, AGITATED, ANXIOUS AND HALLUCINATING THAT SON HERE AND WAS SPEAKING WITH HIM. PATIENT GIVEN PRN ATIVAN AND ZYPREXA SEVERAL TIMES THIS SHIFT TO HELP WITH ANXIETY AND AGITATION. PATIENT HAD TMAX OF 99.7 DEGREES FAHRENHEIT. PATIENT GIVEN PRN FENTANYL OT FOR COMPLAINT OF L FOOT AND ANKLE PAIN. PATIENT REMAINED SATTING 90% AND GREATER ON RA. PATIENT CONTINUED TO HAVE CONGESTED, MOIST COUGH. PATIENT IN SR TO ST, HR 90S TO 130S. SBP 120S TO 160S. NO BM THIS SHIFT. PATIENT FAILED BEDSIDE SWALLOW EVAL. SPEECH THERAPY EVAL ORDERED FOR TOMORROW. PATIENT STARTED ON CLINIMIX AT 75 MLS/ HOUR. BARNES DRAINED 950 MLS OF DARK YELLOW COLORED URINE. PATIENT RECEIVED ROCEPHIN. PATIENT HAD COMPLETE BED BATH. DAUGHTER FROM [place], NA, CAME TO VISIT TODAY. BED LOW, CALL LIGHT IN REACH. PATIENT APPEARS CONTENT AT THIS TIME. REPORT WILL BE GIVEN TO ONCOMING VET ASSISTANT NURSE SHORTLY.
--- NOTE | 2020-08-04 22:06 | NUR ---
ASSUMPTION OF CARE PT RESTING IN BED, ORIENTED TO SELF, LOCATION AND FOLLOWING DIRECTS. PT STS HE WAS ADMITTED TO THE HOSPITAL BECAUSE HE DRANK TO MUCH, DENIES CURRENT SI OR PREVIOUS SUICIDE ATTEMPT, PT MONITORED VIA IN ROOM CAMERA. O2 SATURATIONS> 90% ON RA, PT HAS FREQUENT COUGH BUT MINIMAL SECRETIONS AT THIS TIME. MONITOR SHOWS SINUS TACH WITH HR 100-120, BP STABLE. PT REPORTED NEEDING TO HAVE A BOWEL MOVEMENT, OFFERED BEDPAN AND PT REFUSED, STS HE WANTS TO GET UP AND USE THE TOILET, PT BECAME FRUSTRATED AND AGITATED NOT BEING ABLE TO GET OUT OF BED, PT LATER ACCEPTED BEDPAN AND HAD A SMALL BROWN LOOSE STOOL. PT CONTINUES TO REPORT RESTLESS AND DISCONTENT STAYING IN BED, OFFERED TO ASSIST PT TO DANGLE AT SIDE OF BED, PT AGREED AND WAS A TWO PERSON ASSIST TO DANGLE AT SIDE OF BED, PT VERY APPRECIATIVE AND HAVING CONVERSATION WITH STAFF, TOLERATED FOR APPROX 5 MINUTES. PT FORGETFUL, IMPULSIVE AND HALLUCINATING AT TIMES. REPORTS SEEING A MAN ON THE CEILING. PT VERY FOCUSED ON GAINING STRENGTH SO THAT HE CAN WALK AND FREQUENTLY ATTEMPTS TO GET OUT OF BED STATING HE IS GOING FOR A WALK, BUT IS COOPERTIVE AND REDIRECTABLE. CALL LIGHT WITHIN REACH, PT INSTRUCTED ON USE.
[2020-08-05 04:16] LABS: BASOPHILS ABSOLUTE AUTO 0.07 K/mm3 (0.00-0.23); BASOPHILS PERCENT AUTO 1 % (0-2); EOSINOPHILS ABSOLUTE AUTO 0.12 K/mm3 (0.00-0.68); EOSINOPHILS PERCENT AUTO 2 % (0-6); Hematocrit 40.4 % (37.0-53.0); Hemoglobin 13.6 g/dL (13.5-17.5); IMMATURE GRAN ABSOLUTE AUTO 0.05 K/mm3 (0.00-0.10); IMMATURE GRAN PERCENT AUTO 1 % (0-1); LYMPHOCYTES ABSOLUTE AUTO 1.45 K/mm3 (0.84-5.20); LYMPHOCYTES PERCENT AUTO 20 % (21-46); MONOCYTES ABSOLUTE AUTO 0.84 K/mm3 (0.16-1.47); MONOCYTES PERCENT AUTO 12 % (4-13); Mean Corpuscular HGB 33.3 pg (26.0-34.0); Mean Corpuscular HGB Conc 33.7 g/dL (31.5-36.5); Mean Corpuscular Volume 99 fL (80-100); Mean Platelet Volume 9.5 fL (9.1-12.4); NEUTROPHILS ABSOLUTE AUTO 4.73 K/mm3 (1.96-9.15); NEUTROPHILS PERCENT AUTO 65 % (41-73); Platelet Count 584 K/mm3 (150-400); RDW Coefficient Variation 12.4 % (11.7-14.2); RDW Standard Deviation 45.1 fL (35.1-46.3); Red Blood Cell Count 4.08 M/mm3 (4.30-5.90); White Blood Cell Count 7.26 K/mm3 (4.00-11.30)
[2020-08-05 04:30] LABS: Anion Gap 6 mmol/L (6-16); Blood Urea Nitrogen 23 mg/dL (8-24); Bun/Creatinine Ratio 35.8 (12.0-20.0); CO2, Blood 28 mmol/L (21-32); Calcium, Blood 9.5 mg/dL (8.5-10.1); Chloride, Blood 107 mmol/L (98-108); Creatinine, Blood 0.64 mg/dL (0.60-1.20); Glomerular Filtration Rate >60 (60-); Glucose, Blood 114 mg/dL (70-99); Magnesium, Blood 2.4 mg/dL (1.6-2.4); Phosphorus, Blood 4.6 mg/dL (2.5-4.9); Potassium, Blood 3.8 mmol/L (3.5-5.5); Sodium, Blood 141 mmol/L (136-145)
--- NOTE | 2020-08-05 06:30 | NUR ---
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 PT PLEASANT AND REDIRECTABLE. HALLUCINATIONS NOTED AT TIMES. DENIES SI. PT ON ROOM AIR, DECREASED SECRETIONS. MONITOR SHOWS SINUS TACH WITH HR 100-120, BP STABLE. BARNES REMAINS IN PLACE, BM x1 THIS SHIFT. PT TRIPATHI, REMAINS WEAK BUT STRENGTH IS IMPROVING.
--- NOTE | 2020-08-05 15:16 | NUR ---
DR PAGE HERE DC SI PRECAUTIONS DC'D SUICIDE PRECAUTIONS. CALL PLACED TO REMOTE MOTNITORING TO MONITOR FOR FALL RISK, AND CAN STOP Q15 MIN SI DOCUMENTATION.
--- NOTE | 2020-08-05 17:32 | NUR ---
Spiritual care note: Mr. Hunter was awake, but not quite living in reality as yet. He spoke about the loss of Janice, but was not tearful. He was more concerned that we had sent him to a crack-house where he was held captive last week. He told me that when he gets better, he's "going to take a shotgun over there and free everyone." At times he was making little jokes and then at others paranoid. Regardless, he seemed to enjoy companionship/conversation. 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
--- NOTE | 2020-08-05 18:32 | NUR ---
SHIFT SUMMARY PATIENT DOING MUCH BETTER TODAY. MORE ALERT AND ORIENTED. STILL HAS CONFUSION AT TIMES. SWALLOW EVAL DONE THIS AM, PASSED FOR PUREED FOOD AND NECTAR THICK LIQUID WITH SPOON, NOT STRAW. UP TO CHAIR WITH PT/OT TODAY, ONLY LASTED 1/2 HOUR UP IN CHAIR. PSYCH DOC D/C'D SUICIDE PRECAUTIONS AND SPOKE WITH PT AND DAUGHTER. VSS, GOOD URINE OUTPUT AND GOOD APPETITE.
--- NOTE | 2020-08-05 21:00 | NUR ---
ASSUMED CARE RECEIVED REPORT FROM JABIER IYER
[2020-08-06 04:08] LABS: Hematocrit 38.3 % (37.0-53.0); Hemoglobin 12.9 g/dL (13.5-17.5); Mean Corpuscular HGB 33.5 pg (26.0-34.0); Mean Corpuscular HGB Conc 33.7 g/dL (31.5-36.5); Mean Corpuscular Volume 100 fL (80-100); Mean Platelet Volume 9.7 fL (9.1-12.4); Platelet Count 632 K/mm3 (150-400); RDW Coefficient Variation 12.4 % (11.7-14.2); RDW Standard Deviation 45.1 fL (35.1-46.3); Red Blood Cell Count 3.85 M/mm3 (4.30-5.90); White Blood Cell Count 11.28 K/mm3 (4.00-11.30)
[2020-08-06 04:41] LABS: Albumin, Blood 2.7 g/dL (3.4-5.0); Anion Gap 7 mmol/L (6-16); Blood Urea Nitrogen 27 mg/dL (8-24); Bun/Creatinine Ratio 39.2 (12.0-20.0); CO2, Blood 27 mmol/L (21-32); Calcium, Blood 9.4 mg/dL (8.5-10.1); Chloride, Blood 106 mmol/L (98-108); Creatinine, Blood 0.69 mg/dL (0.60-1.20); Glomerular Filtration Rate >60 (60-); Glucose, Blood 110 mg/dL (70-99); Phosphorus, Blood 4.1 mg/dL (2.5-4.9); Potassium, Blood 3.7 mmol/L (3.5-5.5); Sodium, Blood 140 mmol/L (136-145)
--- NOTE | 2020-08-06 06:35 | NUR ---
SHIFT SUMMARY PT ALERT AND ORIENTED. AGGITATED AT TIMES. PULLING AT LINES AT TIMES. MEDICATED FOR PAIN PER EMAR. PHYICIAN NOIFIED OF PT'S INCREASE IN PAIN. MEDICATIONS ORDERED AND GIVEN PER PHYSICIAN. HR STABLE. BP STABLE. PT REPORTS NO CP OR PRESSURE. CAMILA VEST IN PLACE FOR PT PROTECTION. PT REPOSITIONED Q 2 HRS AND NEEDED FOR COMFORT. WILL CONTINUE TO MONITOR UNTIL REPORT GIVEN TO DAYSHIARELI RN.
--- NOTE | 2020-08-06 07:00 | NUR ---
ASSUMED CARE REPORT RECIEVED BEDSIDE, PATIENT WAS A LITTLE AGGITATED LAST NIGHT. VSS, AFEBRILE WITH A GOOD APPETITE AND GOOD URINE OUTPUT.
--- NOTE | 2020-08-06 16:21 | NUR ---
BARNES REMOVED, TELE REMOVED AND PT DOWNGRADED TO MED NO TELE. WILL TRANSFER WHEN ROOM AVAIL
--- NOTE | 2020-08-06 18:43 | NUR ---
SHIFT SUMMARY PT IS A/O X4, VSS, EATING PUREED MEALS WITH GOOD APPETITE. NECTAR THICK LIQUID WITH A CUP, NOT WITH SPOON. WORKED WITH PT/OT VERY WELL TODAY. WALKED WITH WALKER IN THE HALLWAY. USED URINAL AND HAD BM AFTER BARNES PULLED. SLIGHTLY UNSTEADY ON HIS FEET. DEFINETLY USE WALKER. PT DOWNGRADED TO MED NO TELE, AWAITING ROOM
--- NOTE | 2020-08-06 20:45 | NUR ---
PT WAKENS EASILY, CO CHRONIC BACK PAIN BUT DENIES NEED FOR MEDS AT THIS TIME-"I'LL SAVE IT TILL I REALLY NEED IT". PT IS ALERT, REMEMBERS WHY HE IS HERE AND EXPRESSES APPRECIATION FOR CARE HE HAS REC'D. ON RA, RESPS UNLABORED. REVIEWED IMPORTANCE OF USING CALL LIGHT TO CALL FOR ASSIST AND NOT TO GET UP INDEPEND. CONT ON CAMERA MONITOR FOR FALL RISK, AND CONFIRMED W MONITOR. PLAN TO MOVE PT TO MED FLOOR WHEN BED AVAIL.
--- NOTE | 2020-08-06 21:10 | NUR ---
REPORT TO ENRRIQUE Garsia PT STATUS & ORDERS. PT TO TRANSFER BY WHEELCHAIR WITH ALL BELONGINGS.
--- NOTE | 2020-08-07 04:01 | NUR ---
ECMO SPECIALIST SUMMARY PT TRANSFERRED FROM ICU, RECEIVED REPORT FROM JABIER VINES. PT A&OX4, ABLE TO MAKE NEEDS KNOWN. PLEASANT AND COOPERATIVE TO CARE. MEDICATED FOR CHRONIC BACK PAIN PER EMAR. PT DENIES CP, SOB, OR N&V. PT 1PA ASSIST WITH A FWW. CONTINENT OF B&B, DENIES DYSURIA. CALM AND RESTED IN BED T/O SHIFT. PT CALLS APPROPRIATELY FOR ASSISTANCE. BED AT LOWEST POSITION W/ ALARM ON. CALL LIGHT WITHIN REACH.
[2020-08-07] MEDS ORDERED: Acetaminophen325 M1 PO (14:20)
--- NOTE | 2020-08-07 15:43 | NUR ---
DISCHARGE INSTRUCTIONS COMPLETED AND DISCUSSED WITH PT EXPRESSING UNDERSTANDING. EXWIFE WITH PT ON DISCHARGE AND PLANNING ON BEING WITH PT FOR A PERIOD OF TIME. PT HAS A PLAN FOR WHEN HE GOES HOME TO AVOID DRINKING AGAIN. HAS BEEN MOVING ABOUT IN ROOM AND HALLWAY WITH AND WITHOUT ASSIST PRIOR TO DISCHARGE. TO [facility] VIA W/C.
== END 2020-08-07 14:45 | disposition home or self-care (01) | DRG 917 ==
LOC: ER 15:50 → ICUW 19:49 → MEDS 08-06 21:10
PROVIDERS: Emergency Medicine; Internal Medicine; Internal Medicine Critical Care Medicine; Internal Medicine Pulmonary Disease; Nurse Practitioner Acute Care; Nurse Practitioner Pediatrics; ADMIT Internal Medicine
PROC: 0BH18EZ Insertion of Endotracheal Airway into Trachea, Via Natural or Artificial Opening Endoscopic (ICD-10-PCS; principal; 2020-07-22)
PROC: 5A1955Z Respiratory Ventilation, Greater than 96 Consecutive Hours (ICD-10-PCS; 2020-07-22)
DX: T42.4X2A Poisoning by benzodiazepines, intentional self-harm, initial encounter (principal); G92 Toxic encephalopathy; J69.0 Pneumonitis due to inhalation of food and vomit; J15.0 Pneumonia due to Klebsiella pneumoniae; J15.212 Pneumonia due to Methicillin resistant Staphylococcus aureus; J96.01 Acute respiratory failure with hypoxia; T51.8X2A Toxic effect of other alcohols, intentional self-harm, initial encounter; Y92.9 Unspecified place or not applicable; F17.210 Nicotine dependence, cigarettes, uncomplicated; Y90.8 Blood alcohol level of 240 mg/100 ml or more; Z20.822 Contact with and (suspected) exposure to COVID-19; F12.10 Cannabis abuse, uncomplicated; R74.01 Elevation of levels of liver transaminase levels; R45.1 Restlessness and agitation; Z78.1 Physical restraint status; R13.10 Dysphagia, unspecified; F10.20 Alcohol dependence, uncomplicated
CPT/HCPCS: 0241U; 31500; 31720; 36415; 36600; 51702; 70450; 71045; 80048; 80053; 80069; 81001; 82140; 82330; 82550; 82803; 82947; 83735; 83880; 84100; 85025; 85027; 85610; 85730; 87070; 87077; 87086; 87186; 87205; 92526; 92610; 93005; 93010; 94002; 94003; 94640; 96361-59; 96365; 96366; 96372; 96374-59; 96375; 96375-59; 96376; 96376-59; 97110; 97112; 97116; 97162; 97166; 97530; 99285-25; A9270; C1751; G0378; G0480; J0696; J1170; J1650; J1940; J2060; J2250; J2405; J2560; J2704; J2920; J3010; J3411; J3475; J3480; J7030; J7042; J7050; J7060; J7070; J7120